=== PATIENT | male | born 1940 | race Caucasian/White ===

== ENCOUNTER 2020-06-02 20:16 | Emergency (ER) | payer MEDICAID, MEDICARE, OTHER ==
[2020-06-02 20:27] VITALS: BP 148/78; PULSE 97
[2020-06-02] MEDS ORDERED: Cephalexin 250 MG Cap PO ONE (22:05)
== END 2020-06-02 22:42 | disposition home or self-care (01) ==
LOC: JP.ED 20:16
DX: E86.0 Dehydration (principal); D69.6 Thrombocytopenia, unspecified; N39.0 Urinary tract infection, site not specified; Z87.891 Personal history of nicotine dependence
CPT/HCPCS: 36415; 80048; 81001; 85025; 87086; 87088; 87186; 99285; A9270; 99283

== ENCOUNTER 2020-06-28 18:26 | Emergency (ER) | payer MEDICARE ==
--- NOTE | 2020-06-28 18:44 | EDM.PDOC ---
ED HPI GENERAL MEDICAL PROBLEM - General Chief Complaint: General Stated Complaint: MEDICAL [facility]IA [facility] Time Seen by Provider: 06/28/20 18:30 Source of Information: Reports: Patient, EMS, Old Records, RN History Limitations: Reports: Other (mild dementia) - History of Present Illness INITIAL COMMENTS - FREE TEXT/NARRATIVE: 80 yo male was sent in from home by his daughter with whom he resides for weakness. Baljinder says this weakness has been coming on for a couple mos. He says he has not seen his doctor lately. He denies any new pain. He has been sleeping OK. Onset: Gradual Duration: Week(s):, Getting Worse Location: Reports: Generalized Quality: Reports: Other (pain not reported) Severity: Severe Improves with: Reports: None Worsens with: Reports: Other (time) Context: Reports: Other (See HPI) Associated Symptoms: Reports: Malaise, Weakness (generalized). 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: Reports: Oxygen (per EMS) - Related Data Allergies Allergy/AdvReac Type Severity Reaction Status Date / Time No Known Allergies Allergy Verified 06/02/20 20:20 Home Meds: Home Meds traZODone 100 mg PO BEDTIME 04/15/16 [History] Acetaminophen [Tylenol] 650 mg PO Q4H PRN #0 tablet 04/25/16 [Rx] Pantoprazole [ProTONIX] 40 mg PO ACBREAKFAST #30 tab.cr 04/25/16 [Rx] traMADol [Ultram] 50 mg PO Q4H PRN #50 tablet 04/25/16 [Rx] Cholecalciferol (Vitamin D3) [Vitamin D] 5,000 unit PO DAILY 06/02/20 [History] Memantine [Namenda] 10 mg PO BID 06/02/20 [History] buPROPion [buPROPion XL] 150 mg PO BEDTIME 06/02/20 [History] Past Medical History Cardiovascular History: Reports: Hypertension Neurological History: Reports: Alzheimers Disease Psychiatric History: Reports: Dementia - Infectious Disease History Infectious Disease History: Reports: Chicken Pox, Measles - Past Surgical History HEENT Surgical History: Reports: Tonsillectomy Social & Family History - Tobacco Use Tobacco Use Status *Q: Never Tobacco User - Caffeine Use Caffeine Use: Reports: Coffee ED ROS GENERAL - Review of Systems Review Of Systems: See Below Constitutional: Reports: Malaise, Weakness (generalized) HEENT: Reports: No Symptoms Respiratory: Reports: No Symptoms Cardiovascular: Reports: No Symptoms GI/Abdominal: Reports: No Symptoms : Reports: No Symptoms Musculoskeletal: Reports: No Symptoms Skin: Reports: No Symptoms Neurological: Reports: No Symptoms Psychiatric: Reports: No Symptoms ED EXAM, GENERAL - Physical Exam Exam: See Below Exam Limited By: No Limitations General Appearance: Alert, WD/WN, No Apparent Distress Eye Exam: Bilateral Eye: Normal Inspection Ears: Normal External Exam, Normal Canal, Hearing Grossly Normal Ear Exam: Bilateral Ear: Auricle Normal, Canal Normal Nose: Normal Inspection, No Blood Throat/Mouth: Normal Inspection, Normal Lips, Normal Oropharynx, Normal Voice, No Airway Compromise. No: Normal Teeth (edentulous) Head: Atraumatic, Normocephalic Neck: Normal Inspection Respiratory/Chest: No Respiratory Distress, Lungs Clear, Normal Breath Sounds, No Accessory Muscle Use, Chest Non-Tender GI/Abdominal: Normal Bowel Sounds, Soft, Non-Tender, No Distention Back Exam: Normal Inspection. No: CVA Tenderness (R), CVA Tenderness (L) Extremities: Normal Inspection, Normal Range of Motion, Non-Tender, No Pedal Edema Neurological: Alert, Oriented, CN II-XII Intact, Normal Cognition, No Motor/Sensory Deficits Psychiatric: Normal Mood, Flat Affect Skin Exam: Warm, Dry, Intact, Normal Color, No Rash Course - Vital Signs Text/Narrative:: Post void bladder scan < 100 ml Last Recorded V/S: Last Vital Signs Temp 34.6 C L 06/28/20 19:09 Pulse 67 06/28/20 19:57 Resp 14 06/28/20 19:57 BP 137/78 06/28/20 19:57 Pulse Ox 95 06/28/20 19:57 - Orders/Labs/Meds Orders: Active Orders 24 hr Category Date Time Status Bladder Scan [RC] ASDIRECTED Care 06/28/20 20:25 Active CULTURE URINE [RM] Stat Lab 06/28/20 21:23 Ordered Labs: Laboratory Tests 06/28/20 06/28/20 06/28/20 Range/Units 18:32 18:32 21:09 WBC 9.3 (4.5-11.0) K/uL RBC 4.84 (4.30-5.90) M/uL Hgb 14.0 (12.0-15.0) g/dL Hct 45.3 (40.0-54.0) % MCV 94 (80-98) fL MCH 29 (27-31) pg MCHC 31 L (32-36) % Plt Count 167 (150-400) K/uL Sodium 140 (140-148) mmol/L Potassium 4.3 (3.6-5.2) mmol/L Chloride 103 (100-108) mmol/L Carbon Dioxide 33 H (21-32) mmol/L Anion Gap 8.3 (5.0-14.0) mmol/L BUN 19 H (7-18) mg/dL Creatinine 1.1 (0.8-1.3) mg/dL Est Cr Clr Drug Dosing 53.15 mL/min Estimated GFR (MDRD) > 60 (>60) Glucose 116 H (74-106) mg/dL Calcium 8.7 (8.5-10.1) mg/dL Troponin I < 0.017 (0.000-0.056) ng/mL Urine Color Yellow (YELLOW) Urine Appearance Cloudy A (CLEAR) Urine pH 5.5 (5.0-8.0) Ur Specific [place] >= 1.030 (1.008-1.030) Urine Protein 30 H (NEGATIVE) mg/dL Urine Glucose (UA) Negative (NEGATIVE) mg/dL Urine Ketones Negative (NEGATIVE) mg/dL Urine Occult Blood Trace-intact H (NEGATIVE) Urine Nitrite Positive H (NEGATIVE) Urine Bilirubin Small H (NEGATIVE) Urine Urobilinogen 1.0 (0.2-1.0) EU/dL Ur Leukocyte Esterase Negative (NEGATIVE) Urine RBC 0-5 (0-5) Urine WBC 10-20 H (0-5) Ur Epithelial Cells Rare Amorphous Sediment Not seen Urine Bacteria Many Urine Mucus Not seen Meds: Medications Discontinued Medications Generic Name Dose Route Start Last Admin Trade Name Freq PRN Reason Stop Dose Admin Cephalexin 500 mg 06/28/20 21:23 Keflex PO 06/28/20 21:24 ONETIME ONE Lactated Ringer's 1,000 mls @ 1,000 mls/hr 06/28/20 19:33 06/28/20 19:55 Ringers, Lactated IV 06/28/20 20:32 1,000 mls/hr BOLUS ONE Administration Departure - Departure Time of Disposition: 21:35 Disposition: Home, Self-Care 01 Condition: Fair Clinical Impression: Cystitis, Weakness - Discharge Information *PRESCRIPTION DRUG MONITORING PROGRAM REVIEWED*: Not Applicable *COPY OF PRESCRIPTION DRUG MONITORING REPORT IN PATIENT FLACO: Not Applicable Instructions: Weakness, [id number] Referrals: PCP,None [Primary Care Provider] - Forms: ED Department Discharge Additional Instructions: Give cephalexin 500 mg every 8 hrs until gone. Recheck with your provider DOMINIC, may need physical therapy and/or assisted living if he does not improve. Encourage fluids. Sepsis Event Note (ED) - Focused Exam Vital Signs: Vital Signs Temp Pulse Resp BP Pulse Ox 06/28/20 19:57 67 14 137/78 95 06/28/20 19:25 71 14 156/66 H 92 L 06/28/20 19:09 34.6 C L 72 28 H 135/79 94 L 06/28/20 18:30 34.6 C L 72 28 H 135/79 94 L - My Orders Last 24 Hours: My Active Orders 06/28/20 20:25 Bladder Scan [RC] ASDIRECTED 06/28/20 21:23 CULTURE URINE [RM] Stat - Assessment/Plan Last 24 Hours: My Active Orders 06/28/20 20:25 Bladder Scan [RC] ASDIRECTED 06/28/20 21:23 CULTURE URINE [RM] Stat
[2020-06-28] MEDS ORDERED: Lactated Ringers 1,000 ML IV ONE (19:33)
[2020-06-28 19:58] VITALS: BP 137/78; PULSE 67
[2020-06-28] MEDS ORDERED: Cephalexin 250 MG Cap PO ONE (21:23)
== END 2020-06-28 22:38 | disposition home or self-care (01) ==
LOC: JP.ED 18:26
DX: N30.90 Cystitis, unspecified without hematuria (principal); I10 Essential (primary) hypertension; G30.9 Alzheimer's disease, unspecified; F02.80 Dementia in other diseases classified elsewhere, unspecified severity, without behavioral disturbance, psychotic disturbance, mood disturbance, and anxiety; Z79.899 Other long term (current) drug therapy
CPT/HCPCS: 36415; 80048; 81001; 84484; 85027; 87086; 87088; 87186; 99285; A9270; J7120

== ENCOUNTER 2020-06-29 23:35 | Inpatient (IN) | payer MEDICARE ==
[2020-06-30] MEDS ORDERED: Sodium Chloride 0.9% 10 ML Syringe FLUSH PRN (00:09)
--- NOTE | 2020-06-30 00:15 | EDM.PDOC ---
ED HPI GENERAL MEDICAL PROBLEM - General Chief Complaint: Cardiovascular Problem Stated Complaint: MEDICAL [facility] Time Seen by Provider: 06/30/20 00:00 Source of Information: Reports: EMS, Old Records History Limitations: Reports: Other (patient not useful for history) - History of Present Illness INITIAL COMMENTS - FREE TEXT/NARRATIVE: 80 yo male is brought in by EMS for hypoxia, low BP and weakness. Was seen here yesterday and had a normal exam, labs and vitals except for a few WBC's in his urine and a high specific gravity on his UA so he was given fluids and started on cephalexin. Since then he has developed the respiratory sx's. Lives in his home and daughter lives with him. Is DNR/DNI. Onset: Gradual Onset Date: 06/29/20 Duration: Hour(s):, Getting Worse Location: Reports: Chest, Generalized Quality: Reports: Other (pain not reported.) Severity: Moderate Improves with: Reports: None Worsens with: Reports: Other (time) Context: Reports: Other (See HPI) Associated Symptoms: Reports: Malaise, Shortness of Breath. Denies: Fever/Chills Treatments LOOP CUTTER: Reports: See EMS Report, Other (see below) (cephalexin) - Related Data Allergies Allergy/AdvReac Type Severity Reaction Status Date / Time No Known Allergies Allergy Verified 06/29/20 23:58 Home Meds: Home Meds traZODone 100 mg PO BEDTIME 04/15/16 [History] Acetaminophen [Tylenol] 650 mg PO Q4H PRN #0 tablet 04/25/16 [Rx] Pantoprazole [ProTONIX] 40 mg PO ACBREAKFAST #30 tab.cr 04/25/16 [Rx] traMADol [Ultram] 50 mg PO Q4H PRN #50 tablet 04/25/16 [Rx] Cholecalciferol (Vitamin D3) [Vitamin D] 5,000 unit PO DAILY 06/02/20 [History] Memantine [Namenda] 10 mg PO BID 06/02/20 [History] buPROPion [buPROPion XL] 150 mg PO BEDTIME 06/02/20 [History] Past Medical History Cardiovascular History: Reports: Hypertension Neurological History: Reports: Alzheimers Disease Psychiatric History: Reports: Dementia - Infectious Disease History Infectious Disease History: Reports: Chicken Pox, Measles - Past Surgical History HEENT Surgical History: Reports: Tonsillectomy Social & Family History - Caffeine Use Caffeine Use: Reports: Coffee ED ROS GENERAL - Review of Systems Review Of Systems: See Below Constitutional: Reports: Malaise, Weakness HEENT: Reports: No Symptoms Respiratory: Reports: Shortness of Breath Cardiovascular: Reports: No Symptoms GI/Abdominal: Reports: No Symptoms : Reports: No Symptoms Musculoskeletal: Reports: No Symptoms Skin: Reports: No Symptoms Neurological: Reports: No Symptoms ED EXAM, GENERAL - Physical Exam Exam: See Below Exam Limited By: No Limitations General Appearance: Alert, WD/WN Eye Exam: Bilateral Eye: Normal Inspection Ears: Normal External Exam, Hearing Grossly Normal Ear Exam: Bilateral Ear: Auricle Normal, Canal Normal, TM normal Nose: Normal Inspection, No Blood Throat/Mouth: Normal Inspection, Normal Lips, Normal Oropharynx, Normal Voice, No Airway Compromise Head: Atraumatic, Normocephalic Neck: Normal Inspection Respiratory/Chest: Rhonchi Cardiovascular: Regular Rate, Rhythm, No Edema GI/Abdominal: Normal Bowel Sounds, Soft, Non-Tender, No Distention Back Exam: Normal Inspection. No: CVA Tenderness (R), CVA Tenderness (L) Extremities: Normal Inspection, Normal Range of Motion, Non-Tender, No Pedal Edema Neurological: Alert, Oriented, CN II-XII Intact, Normal Cognition, No Motor/Sensory Deficits Psychiatric: Normal Affect, Normal Mood Skin Exam: Warm, Dry, Intact, Normal Color, No Rash Course - Vital Signs Text/Narrative:: Dr. Kitchen called @ 1230h Last Recorded V/S: Last Vital Signs Temp 35.9 C L 06/29/20 23:38 Pulse 70 06/29/20 23:38 Resp 28 H 06/29/20 23:38 BP 89/55 L 06/29/20 23:38 Pulse Ox 90 L 06/29/20 23:38 - Orders/Labs/Meds Orders: Active Orders 24 hr Category Date Time Status Chest 1V Frontal [CR] Stat Exams 06/30/20 00:08 Taken Sodium Chloride 0.9% [Saline Flush] Med 06/30/20 00:09 Active 10 ml FLUSH ASDIRECTED PRN Saline Lock Insert [OM.PC] Routine Oth 06/30/20 00:09 Ordered Medication Orders Sodium Chloride (Saline Flush) 10 ml FLUSH ASDIRECTED PRN PRN Reason: Keep Vein Open Labs: Laboratory Tests 06/30/20 06/30/20 Range/Units 00:08 00:12 WBC 7.0 (4.5-11.0) K/uL RBC 4.60 (4.30-5.90) M/uL Hgb 13.7 (12.0-15.0) g/dL Hct 43.8 (40.0-54.0) % MCV 95 (80-98) fL MCH 30 (27-31) pg MCHC 31 L (32-36) % Plt Count 142 L (150-400) K/uL Sodium 140 (140-148) mmol/L Potassium 4.3 (3.6-5.2) mmol/L Chloride 103 (100-108) mmol/L Carbon Dioxide 34 H (21-32) mmol/L Anion Gap 7.3 (5.0-14.0) mmol/L BUN 17 (7-18) mg/dL Creatinine 1.2 (0.8-1.3) mg/dL Est Cr Clr Drug Dosing 48.67 mL/min Estimated GFR (MDRD) 58 L (>60) Glucose 138 H (74-106) mg/dL Calcium 8.2 L (8.5-10.1) mg/dL C-Reactive Protein 3.50 H (0.0-0.3) mg/dL Meds: Medications Generic Name Dose Route Start Last Admin Trade Name Freq PRN Reason Stop Dose Admin Sodium Chloride 10 ml 06/30/20 00:09 Saline Flush FLUSH ASDIRECTED PRN Keep Vein Open - Radiology Interpretation Free Text/Narrative:: CXR-bilateral effusions, infiltrates Departure - Departure Time of Disposition: 01:00 Disposition: Admitted As Inpatient 64 Condition: Fair Clinical Impression: Hypoxia, Pleural effusion Pneumonia Qualifiers: Pneumonia type: due to unspecified organism Laterality: bilateral Lung location: lower lobe of lung Qualified Code(s): J18.9 - Pneumonia, unspecified organism Referrals: PCP,None [Primary Care Provider] - Forms: ED Department Discharge Sepsis Event Note (ED) - Evaluation Sepsis Screening Result: Possible Severe Sepsis Risk - Focused Exam Vital Signs: Vital Signs Temp Pulse Resp BP Pulse Ox 06/29/20 23:38 35.9 C L 70 28 H 89/55 L 90 L - My Orders Last 24 Hours: My Active Orders 06/30/20 00:08 Chest 1V Frontal [CR] Stat 06/30/20 00:09 Sodium Chloride 0.9% [Saline Flush] 10 ml FLUSH ASDIRECTED PRN Saline Lock Insert [OM.PC] Routine - Assessment/Plan Last 24 Hours: My Active Orders 06/30/20 00:08 Chest 1V Frontal [CR] Stat 06/30/20 00:09 Sodium Chloride 0.9% [Saline Flush] 10 ml FLUSH ASDIRECTED PRN Saline Lock Insert [OM.PC] Routine
[2020-06-30] MEDS ORDERED: Lactated Ringers 1,000 ML IV SCH (01:00)
[2020-06-30] MEDS ORDERED: Levofloxacin/Dextrose 5%-Water 750 MG in Premix Bag 1 BAG IV ONE (01:26)
--- NOTE | 2020-06-30 02:14 | PCM.HP.2 ---
H&P History of Present Illness - General Date of Service: 06/30/20 Admit Problem/Dx: Admission Diagnosis/Problem Admission Diagnosis/Problem Pneumonia Source of Information: Patient, Family History Limitations: Reports: Other (answers a few questions, daughter does most of the talking ) - History of Present Illness Initial Comments - Free Text/Narative: CC: I thought I was losing him HPI: Baljinder presents to the emergency room tonight by ambulance after an episode of unresponsiveness while he was on the toilet. Most history is gathered from his daughter but he does provide some information. Most of his responses are either a head nod or head shake. She reports that he has had increasing difficulty over the past month. He has been treated for urinary tract infection a couple of different times. He has had a slow decline in his strength with a more rapid decline over the last several days. He was in the emergency room last night and work-up was suggestive of a possible urinary tract infection and he was on cephalexin. Since that time he has become even more weak. He has not been eating or drinking very well. This evening while he was sitting on the t oilet having a bowel movement his eyes rolled back and he stared blankly. His arms were shaky. This lasted about 30 seconds before he came back to normal. He does say he has been coughing some and his daughter reports that he has been coughing up some phlegm. He does not report any chest pain or abdominal pain. No nausea. No change in bowel or bladder habits. Energy has decreased from baseline. He has been losing weight because he has not been eating. He has had multiple falls with minor bumps and bruises. No sick contacts. No travel. Work-up in the emergency room suggested a right lung pneumonia. He is hypoxic and requiring 3.5 L of supplemental oxygen. His blood pressure is low and he is receiving a fluid bolus. He is going to be admitted to the intensive care unit for management of pneumonia with sepsis and respiratory failure. - Related Data Allergies/Adverse Reactions: Allergies Allergy/AdvReac Type Severity Reaction Status Date / Time No Known Allergies Allergy Verified 06/29/20 23:58 Home Medications: Home Meds traZODone 100 mg PO BEDTIME 04/15/16 [History] Acetaminophen [Tylenol] 650 mg PO Q4H PRN #0 tablet 04/25/16 [Rx] Pantoprazole [ProTONIX] 40 mg PO ACBREAKFAST #30 tab.cr 04/25/16 [Rx] traMADol [Ultram] 50 mg PO Q4H PRN #50 tablet 04/25/16 [Rx] Cholecalciferol (Vitamin D3) [Vitamin D] 5,000 unit PO DAILY 06/02/20 [History] Memantine [Namenda] 10 mg PO BID 06/02/20 [History] buPROPion [buPROPion XL] 150 mg PO BEDTIME 06/02/20 [History] Past Medical History Cardiovascular History: Reports: Hypertension Neurological History: Reports: Alzheimers Disease Psychiatric History: Reports: Dementia - Infectious Disease History Infectious Disease History: Reports: Chicken Pox, Measles - Past Surgical History HEENT Surgical History: Reports: Tonsillectomy Social & Family History - Family History Cardiac: Denies: CAD - Tobacco Use Tobacco Use Status *Q: Never Tobacco User - Caffeine Use Caffeine Use: Reports: Coffee - Alcohol Use Alcohol Use History: No - Recreational Drug Use Recreational Drug Use: No H&P Review of Systems - Review of Systems: Review Of Systems: See Below Free Text/Narrative: A complete 12 point review of systems was obtained. Pertinent positives and negatives are noted in the history of present illness. All other systems were reviewed and were negative except as noted. Exam - Exam Exam: See Below - Vital Signs Vital Signs: Last Vital Signs Temp 35.9 C L 06/29/20 23:38 Pulse 67 06/30/20 01:54 Resp 28 H 06/29/20 23:38 BP 83/51 L 06/30/20 01:54 Pulse Ox 90 L 06/29/20 23:38 Weight: 72.5 kg - Exam Quality Assessment: Supplemental Oxygen General: Alert, Cooperative. No: Mild Distress HEENT: Conjunctiva Clear. No: Mucosa Moist & Wesley (dry), Scleral Icterus Neck: Supple, Trachea Midline Lungs: Decreased Breath Sounds (right lung base), Crackles (left lower and right mid/lower lungs). No: Normal Respiratory Effort (increased work of breathing ), Wheezing Cardiovascular: Regular Rate, Regular Rhythm GI/Abdominal Exam: Normal Bowel Sounds, Soft, Non-Tender, No Distention Extremities: No Pedal Edema. No: Increased Warmth Peripheral Pulses: 1+: Dorsalis Pedis (L), Dorsalis Pedis (R) Skin: Warm, Dry, Ecchymosis (left shoulder, both arms), Wound (small abrasion on his forehead and left knee as well as healing abrasion/scab on posterior scalp) Neuro Extensive - Mental Status: Alert, Nl Response to Commands Neuro Extensive - Motor, Sensory, Reflexes: No: Dysarthria, Abnormal Motor Psychiatric: Alert, Normal Affect - Patient Data Lab Results Last 24 hrs: Laboratory Results - last 24 hr 06/30/20 06/30/20 06/30/20 Range/Units 00:08 00:12 00:42 WBC 7.0 (4.5-11.0) K/uL RBC 4.60 (4.30-5.90) M/uL Hgb 13.7 (12.0-15.0) g/dL Hct 43.8 (40.0-54.0) % MCV 95 (80-98) fL MCH 30 (27-31) pg MCHC 31 L (32-36) % Plt Count 142 L (150-400) K/uL Sodium 140 (140-148) mmol/L Potassium 4.3 (3.6-5.2) mmol/L Chloride 103 (100-108) mmol/L Carbon Dioxide 34 H (21-32) mmol/L Anion Gap 7.3 (5.0-14.0) mmol/L BUN 17 (7-18) mg/dL Creatinine 1.2 (0.8-1.3) mg/dL Est Cr Clr Drug Dosing 48.67 mL/min Estimated GFR (MDRD) 58 L (>60) Glucose 138 H (74-106) mg/dL Lactic Acid (0.4-2.0) mmol/L Calcium 8.2 L (8.5-10.1) mg/dL C-Reactive Protein 3.50 H (0.0-0.3) mg/dL SARS CoV-2 RNA Rapid ISELA Negative 06/30/20 Range/Units 00:52 WBC (4.5-11.0) K/uL RBC (4.30-5.90) M/uL Hgb (12.0-15.0) g/dL Hct (40.0-54.0) % MCV (80-98) fL MCH (27-31) pg MCHC (32-36) % Plt Count (150-400) K/uL Sodium (140-148) mmol/L Potassium (3.6-5.2) mmol/L Chloride (100-108) mmol/L Carbon Dioxide (21-32) mmol/L Anion Gap (5.0-14.0) mmol/L BUN (7-18) mg/dL Creatinine (0.8-1.3) mg/dL Est Cr Clr Drug Dosing mL/min Estimated GFR (MDRD) (>60) Glucose (74-106) mg/dL Lactic Acid 3.3 H (0.4-2.0) mmol/L Calcium (8.5-10.1) mg/dL C-Reactive Protein (0.0-0.3) mg/dL SARS CoV-2 RNA Rapid ISELA Result Diagrams: 06/30/20 00:08 06/30/20 00:12 Imaging Impressions Last 24 hrs: CXR-image personally reviewed-bilateral effusions L>R. There is a large right sided infiltrate. heart size is normal. No obvious mass. Sepsis Event Note - Evaluation Sepsis Screening Result: Possible Severe Sepsis Risk - Focused Exam Vital Signs: Vital Signs Temp Pulse Resp BP Pulse Ox 06/30/20 01:54 67 83/51 L 06/30/20 01:30 68 86/50 L 06/30/20 00:45 70 85/48 L 06/30/20 00:07 67 91/53 L 06/29/20 23:48 67 92/55 L 06/29/20 23:38 35.9 C L 70 28 H 89/55 L 90 L *Q Meaningful Use (ADM) - VTE Risk Assess *Q Each Risk Factor Represents 1 Point: Sepsis, Serious lung disease including pneumonia Total Score 1 Point Risk Factors: 2 Each Risk Factor Represents 2 Points: None Total Score 2 Point Risk Factors: 0 Each Risk Factor Represents 3 Points: Age 75 Years or Greater Total Score 3 Point Risk Factors: 3 Each Risk Factor Represents 5 Points: None Total Score 5 Point Risk Factors: 0 Venous Thromboembolism Risk Factor Score *Q: 5 - Problem List (1) Pneumonia SNOMED Code(s): 380881831 ICD Code: J18.9 - PNEUMONIA, UNSPECIFIED ORGANISM Status: Acute Current Visit: Yes Qualifiers: Pneumonia type: due to unspecified organism Laterality: bilateral Lung location: lower lobe of lung Qualified Code(s): J18.9 - Pneumonia, unspecified organism (2) Sepsis SNOMED Code(s): 51295097 ICD Code: A41.9 - SEPSIS, UNSPECIFIED ORGANISM Status: Acute Current Visit: Yes Qualifiers: Sepsis acute organ dysfunction status: with acute organ dysfunction Severe sepsis acute organ dysfunction type: acute respiratory failure Acute respiratory failure type: with hypoxia Severe sepsis shock status: without septic shock (3) Acute respiratory failure with hypoxia SNOMED Code(s): 15623943, 972117808 ICD Code: J96.01 - ACUTE RESPIRATORY FAILURE WITH HYPOXIA Status: Acute Current Visit: Yes (4) Pleural effusion SNOMED Code(s): 05082997 ICD Code: J90 - PLEURAL EFFUSION, NOT ELSEWHERE CLASSIFIED Status: Acute Current Visit: Yes (5) UTI (urinary tract infection) SNOMED Code(s): 19720889 ICD Code: N39.0 - URINARY TRACT INFECTION, SITE NOT SPECIFIED Status: Acute Current Visit: No Qualifiers: Urinary tract infection type: acute cystitis Hematuria presence: without hematuria Qualified Code(s): N30.00 - Acute cystitis without hematuria (6) Weakness SNOMED Code(s): 70340045 ICD Code: R53.1 - WEAKNESS Status: Acute Current Visit: No Problem List Initiated/Reviewed/Updated: Yes Orders Last 24hrs: Active Orders 24 hr Category Date Time Status Patient Status Manage Transfer [TRANSFER] Routine ADT 06/30/20 01:59 Ordered Chest 1V Frontal [CR] Stat Exams 06/30/20 00:08 Taken Chest wo Cont [CT] Stat Exams 06/30/20 01:55 Ordered CULTURE BLOOD [BC] Stat Lab 06/30/20 01:27 Received Lactated Ringers [Ringers, Lactated] 1,000 ml Med 06/30/20 01:00 Active IV BOLUS Levofloxacin/Dextrose 5%-Water [Levaquin in D5W 750 MG/ Med 06/30/20 01:26 Active 150 ML] 750 mg Premix Bag 1 bag IV ONETIME Sodium Chloride 0.9% [Saline Flush] Med 06/30/20 00:09 Active 10 ml FLUSH ASDIRECTED PRN Saline Lock Insert [OM.PC] Routine Oth 06/30/20 00:09 Ordered Resuscitation Status Routine Resus Stat 06/30/20 02:01 Ordered Medication Orders Lactated Ringer's (Ringers, Lactated) 1,000 mls @ 1,000 mls/hr IV BOLUS [facility] Last Admin: 06/30/20 00:56 Dose: 1,000 mls/hr Documented by: ADITYA Levofloxacin/Dextrose 750 mg/ (Premix) 150 mls @ 100 mls/hr IV ONETIME ONE Stop: 06/30/20 02:55 Last Admin: 06/30/20 01:32 Dose: 100 mls/hr Documented by: ADITYA Sodium Chloride (Saline Flush) 10 ml FLUSH ASDIRECTED PRN PRN Reason: Keep Vein Open Last Admin: 06/30/20 00:55 Dose: 10 ml Documented by: ADITYA Assessment/Plan Comment:: ASSESSMENT AND PLAN - Right lung pneumonia-complicated by sepsis and acute respiratory failure with hypoxia. Currently requiring 3.5 L of oxygen. He does have a productive cough. Fairly large looking infiltrate on the right as well as bilateral effusions that would be better characterized with CT scan. He is currently hypotensive and receiving IV fluid boluses. Lactic acid is 3.3. -Antibiotic coverage with levofloxacin and ceftriaxone -Additional fluid bolus until blood pressure improved -Consider norepinephrine if he remains hypotensive -Sputum culture if able -Supplement oxygen -CT of the chest to further characterize infiltrate and effusions Bilateral pleural effusions-slightly larger on the left than on the right. No history of congestive heart failure. -Consider echocardiogram Recurrent urinary tract infections-several rounds of antibiotics over the past month. Urine last night suggestive of infection and he did have E. coli growing in the culture today. This should have been sensitive to the cephalexin. -Antibiotics as above Maintenance issues - - DVT prophylaxis -enoxaparin - GI prophylaxis -PPI - Nutrition -mechanical soft - Thorpe catheter -not currently indicated but could be considered if status becomes more critical CODE STATUS -DNR/DNI Admission justification -this patient will be admitted for inpatient services and is medically appropriate meeting medical necessity for inpatient admission as outlined in my documentation. I reasonably expect the patient will require inpatient services that span a period time over 2 midnights. I reasonably expect this patient to be discharged or transferred within 96 hours [facility]. Disposition -I would anticipate discharge to a longterm facility if he survives the hospital stay Primary care physician -Dr Maryjo Kitchen M.D. - Mortality Measure Prognosis:: Poor
[2020-06-30] MEDS ORDERED: traMADol 50 MG Tab PO PRN (03:22)
[2020-06-30] MEDS ORDERED: LORazepam 2 MG/ML SDV IVPUSH PRN (03:22)
[2020-06-30] MEDS ORDERED: Ondansetron 4 MG/2 ML SDV IV PRN (03:22)
[2020-06-30] MEDS ORDERED: Acetaminophen 325 MG Tab PO PRN (03:22)
[2020-06-30] MEDS ORDERED: Sodium Chloride 0.9% 1,000 ML IV SCH (03:22)
[2020-06-30] MEDS ORDERED: Ondansetron 4 MG Tab.DIS PO PRN (03:22)
[2020-06-30] MEDS ORDERED: Lactated Ringers 500 ML IV SCH (03:22)
[2020-06-30] MEDS ORDERED: Sodium Chloride 0.9% 1,000 ML IV ONE (03:22)
[2020-06-30] MEDS ORDERED: Albuterol 0.083% 2.5 MG/3 ML Neb Soln NEB PRN (03:22)
[2020-06-30] MEDS ORDERED: Magnesium Hydroxide 400 MG/5 ML Susp 30 ML Cup PO PRN (03:22)
--- NOTE | 2020-06-30 04:03 | CRLCT ---
INDICATION: Pneumonia, effusions COMPARISON: CT chest without contrast 02/19/2016 TECHNIQUE: Nonenhanced axial CT imaging through the chest. Sagittal and coronal reconstructions are provided. FINDINGS: There are several small cavitating nodular densities scattered throughout the right lung. Consolidative changes are seen in the lung bases bilaterally. There is very small right pleural effusion. Small to moderate sized pleural effusion is also present on the left. Mild subpleural emphysema is noted in the lung apices. No lymphadenopathy is appreciated in the mediastinum and pulmonary josh. There is no cardiomegaly. Coronary artery calcification is present. There is no pericardial effusion. The main pulmonary artery and thoracic aorta are normal in caliber. Degenerative changes are noted in the thoracic spine. There is pneumobilia involving the left hepatic lobe. The included upper abdomen is otherwise unremarkable. IMPRESSION: 1. Bibasilar airspace consolidation, concerning for pneumonia. Bilateral pleural effusions, larger on the left. 2. Scattered small cavitating pulmonary nodular densities in the right lung. Primary differential considerations are infection and vasculitis. Neoplasm is considered less likely. Please note that all CT scans at this facility use dose modulation, iterative reconstruction, and/or weight-based dosing when appropriate to reduce radiation dose to as low as reasonably achievable. Dictated by Kathy Jaiml MD @ Jun 30 2020 3:51AM Signed by Dr. Kathy Jamil @ Jun 30 2020 4:02AM
[2020-06-30] MEDS: cefTRIAXone 1 GM in Sodium Chloride 0.9% 50 ML IV SCH ×2 (04:34→20:33)
[2020-06-30] MEDS ORDERED: Albuterol/Ipratropium 3.0-0.5 MG/3 ML Neb Soln NEB SCH (06:00)
[2020-06-30] MEDS: Pantoprazole 40 MG Tab.CR PO SCH (08:46)
[2020-06-30] MEDS: Lactobacillus Rhamnosus GG (Probiotic) Cap PO SCH ×2 (08:46→20:26)
[2020-06-30] MEDS: Enoxaparin 40 MG/0.4 ML Syringe SUBCUT SCH (08:47)
[2020-06-30] MEDS: Memantine 10 MG Tab PO SCH ×2 (08:47→20:26)
[2020-06-30] MEDS: Albuterol/Ipratropium 3.0-0.5 MG/3 ML Neb Soln NEB SCH ×3 (10:11→20:32)
[2020-06-30] MEDS: Sodium Chloride 0.9% 1,000 ML IV SCH (11:43)
[2020-06-30] MEDS: buPROPion 150 MG Tab.ER PO SCH (20:26)
[2020-06-30] MEDS: Melatonin 3 MG Tab PO SCH (20:26)
[2020-06-30] MEDS: traZODone 50 MG Tab PO SCH (20:26)
[2020-07-01] MEDS: Sodium Chloride 0.9% 1,000 ML IV SCH (00:50)
[2020-07-01] MEDS: Albuterol/Ipratropium 3.0-0.5 MG/3 ML Neb Soln NEB SCH ×4 (07:16→21:18)
[2020-07-01] MEDS: Pantoprazole 40 MG Tab.CR PO SCH (08:55)
[2020-07-01] MEDS: Memantine 10 MG Tab PO SCH ×2 (09:10→20:56)
[2020-07-01] MEDS: Lactobacillus Rhamnosus GG (Probiotic) Cap PO SCH ×2 (09:10→20:56)
[2020-07-01] MEDS: Enoxaparin 40 MG/0.4 ML Syringe SUBCUT SCH (09:14)
[2020-07-01] MEDS: Levofloxacin/Dextrose 5%-Water 750 MG in Premix Bag 1 BAG IV SCH (10:57)
--- NOTE | 2020-07-01 12:44 | PCM.PN ---
- General Info Date of Service: 07/01/20 Subjective Update: Mr. Davis has improved from admission with less shortness of breath. Appetite this morning is good, he was able to eat most of his very large breakfast. Energy level overall seems to be improving. Functional Status: Reports: Tolerating Diet, Ambulating, Urinating - Review of Systems General: Reports: Weakness, Fatigue. Denies: Fever, Chills Pulmonary: Reports: Shortness of Breath, Cough. Denies: Sputum, Hemoptysis, Wheezing Cardiovascular: Reports: Dyspnea on Exertion. Denies: Chest Pain, Palpitations, Orthopnea, PND, Edema, Lightheadedness Gastrointestinal: Reports: No Symptoms Genitourinary: Reports: No Symptoms - Patient Data Vitals - Most Recent: Last Vital Signs Temp 97.3 F 07/01/20 12:00 Pulse 62 07/01/20 12:00 Resp 14 07/01/20 12:00 BP 117/55 L 07/01/20 12:00 Pulse Ox 99 07/01/20 12:00 Weight - Most Recent: 154 lb 12.8 oz I&O - Last 24 Hours: Intake & Output 06/30/20 07/01/20 07/01/20 22:59 06:59 14:59 Intake Total 1625 150 Output Total 150 125 Balance 1475 25 Lab Results Last 24 Hours: Laboratory Results - last 24 hr 07/01/20 07/01/20 Range/Units 06:00 06:00 WBC 4.6 (4.5-11.0) K/uL RBC 3.74 L (4.30-5.90) M/uL Hgb 10.7 L D (12.0-15.0) g/dL Hct 35.5 L (40.0-54.0) % MCV 95 (80-98) fL MCH 29 (27-31) pg MCHC 30 L (32-36) % Plt Count 120 L (150-400) K/uL Neut % (Auto) 81 H (36-66) % Lymph % (Auto) 10 L (24-44) % Todd % (Auto) 8 H (2-6) % Eos % (Auto) 1 L (2-4) % Baso % (Auto) 0 (0-1) % Sodium 141 (140-148) mmol/L Potassium 3.6 (3.6-5.2) mmol/L Chloride 105 (100-108) mmol/L Carbon Dioxide 31 (21-32) mmol/L Anion Gap 4.8 L (5.0-14.0) mmol/L BUN 10 (7-18) mg/dL Creatinine 0.9 (0.8-1.3) mg/dL Est Cr Clr Drug Dosing 56.55 mL/min Estimated GFR (MDRD) > 60 (>60) Glucose 125 H (74-106) mg/dL Calcium 7.7 L (8.5-10.1) mg/dL Magnesium 1.8 (1.8-2.4) mg/dL Total Bilirubin 0.2 (0.2-1.0) mg/dL AST 15 (15-37) U/L ALT 25 (12-78) U/L Alkaline Phosphatase 83 (46-116) U/L Total Protein 5.1 L (6.4-8.2) g/dL Albumin 1.7 L (3.4-5.0) g/dL Globulin 3.4 (2.3-3.5) g/dL Albumin/Globulin Ratio 0.5 L (1.2-2.2) German Results Last 24 Hours: Microbiology 06/30/20 01:27 Aerobic Blood Culture - Preliminary Blood - Venous NO GROWTH AFTER 1 DAY Anaerobic Blood Culture - Preliminary NO GROWTH AFTER 1 DAY 06/30/20 19:11 Gram Stain - Final Sputum - Expectorated 06/30/20 07:51 Gram Stain - Final Sputum - Expectorated Respiratory Culture - Final Med Orders - Current: Current Medications Acetaminophen (Tylenol) 650 mg PO Q4H PRN PRN Reason: Pain (Mild 1-3)/fever Albuterol (Proventil Neb Soln) 2.5 mg NEB Q4H PRN PRN Reason: Shortness Of Breath/wheezing Albuterol/Ipratropium (Duoneb 3.0-0.5 Mg/3 Ml) 3 ml NEB QIDRT [facility] Last Admin: 07/01/20 11:03 Dose: 3 ml Documented by: Bupropion HCl (Wellbutrin Xl) 150 mg PO BEDTIME [facility] Last Admin: 06/30/20 20:26 Dose: 150 mg Documented by: Enoxaparin Sodium (Lovenox) 40 mg SUBCUT DAILY [facility] Last Admin: 07/01/20 09:14 Dose: 40 mg Documented by: Lactated Ringer's (Ringers, Lactated) 500 mls @ 999 mls/hr IV .BOLUS [facility] Ceftriaxone Sodium 1 gm/ (Sodium Chloride) 50 mls @ 100 mls/hr IV BEDTIME [facility] Last Admin: 06/30/20 20:33 Dose: 100 mls/hr Documented by: Levofloxacin/Dextrose 750 mg/ (Premix) 150 mls @ 100 mls/hr IV Q24H [facility] Last Admin: 07/01/20 10:57 Dose: 100 mls/hr Documented by: Lactobacillus Rhamnosus (Culturelle) 1 cap PO BID [facility] Last Admin: 07/01/20 09:10 Dose: 1 cap Documented by: Lorazepam (Ativan) 0.5 mg IVPUSH Q4H PRN PRN Reason: Nausea/Vomiting Magnesium Hydroxide (Milk Of Magnesia) 30 ml PO Q12H PRN PRN Reason: Constipation Melatonin (Melatonin) 9 mg PO BEDTIME [facility] Last Admin: 06/30/20 20:26 Dose: 9 mg Documented by: Memantine (Namenda) 10 mg PO BID [facility] Last Admin: 07/01/20 09:10 Dose: 10 mg Documented by: Ondansetron HCl (Zofran) 4 mg IV Q6H PRN PRN Reason: Nausea/Vomiting Ondansetron HCl (Zofran Odt) 4 mg PO Q6H PRN PRN Reason: Nausea able to take PO Pantoprazole Sodium (Protonix) 40 mg PO ACBREAKFAST [facility] Last Admin: 07/01/20 08:55 Dose: 40 mg Documented by: Senna/Docusate Sodium (Senna Plus) 1 tab PO BID PRN PRN Reason: Constipation Sodium Chloride (Saline Flush) 10 ml FLUSH ASDIRECTED PRN PRN Reason: Keep Vein Open Last Admin: 06/30/20 00:55 Dose: 10 ml Documented by: Tramadol HCl (Ultram) 50 mg PO Q4H PRN PRN Reason: Pain Trazodone HCl (Trazodone) 100 mg PO BEDTIME [facility] Last Admin: 06/30/20 20:26 Dose: 100 mg Documented by: Discontinued Medications Albuterol/Ipratropium (Duoneb 3.0-0.5 Mg/3 Ml) 3 ml NEB QID [facility] Last Admin: 06/30/20 06:58 Dose: 3 ml Documented by: Lactated Ringer's (Ringers, Lactated) 1,000 mls @ 1,000 mls/hr IV BOLUS [facility] Last Admin: 06/30/20 00:56 Dose: 1,000 mls/hr Documented by: Levofloxacin/Dextrose 750 mg/ (Premix) 150 mls @ 100 mls/hr IV ONETIME ONE Stop: 06/30/20 02:55 Last Admin: 06/30/20 01:32 Dose: 100 mls/hr Documented by: Sodium Chloride (Normal Saline) 1,000 mls @ 999 mls/hr IV .BOLUS ONE Stop: 06/30/20 04:22 Last Admin: 06/30/20 03:34 Dose: 999 mls/hr Documented by: Sodium Chloride (Normal Saline) 1,000 mls @ 125 mls/hr IV ASDIRECTED [facility] Last Admin: 06/30/20 04:37 Dose: 125 mls/hr Documented by: Sodium Chloride (Normal Saline) 1,000 mls @ 75 mls/hr IV ASDIRECTED [facility] Last Admin: 07/01/20 00:50 Dose: 75 mls/hr Documented by: - Exam Quality Assessment: Supplemental Oxygen, DVT Prophylaxis General: Alert, Cooperative, Mild Distress. No: Oriented Lungs: Decreased Breath Sounds, Rhonchi. No: Crackles, Rales, Wheezing Cardiovascular: Regular Rate, Regular Rhythm, No Murmurs GI/Abdominal Exam: Soft, Non-Tender, No Organomegaly, No Distention Extremities: Non-Tender, No Pedal Edema Sepsis Event Note - Evaluation Sepsis Screening Result: No Definite Risk - Focused Exam Vital Signs: Vital Signs Temp Pulse Resp BP Pulse Ox 07/01/20 12:00 97.3 F 62 14 117/55 L 99 07/01/20 10:00 64 20 118/51 L 94 L 07/01/20 09:00 64 19 119/51 L 96 07/01/20 08:00 68 19 123/50 L 96 07/01/20 06:00 63 25 H 124/66 95 07/01/20 05:00 74 22 H 120/64 96 07/01/20 04:00 62 13 124/56 L 96 07/01/20 03:22 96 07/01/20 03:00 66 14 129/53 L 97 07/01/20 02:00 70 19 129/58 L 95 07/01/20 01:00 97.1 F 68 12 129/58 L 97 - Problem List Review Problem List Initiated/Reviewed/Updated: Yes - My Orders Last 24 Hours: My Active Orders 06/30/20 19:11 CULTURE RESPIRATORY + SMEAR [RM] Routine 07/01/20 12:39 Convert IV to Saline Lock [OM.PC] Routine 07/02/20 05:00 BASIC METABOLIC PANEL,BMP [CHEM] Timed CBC WITH AUTO DIFF [HEME] Timed - Plan Plan:: ASSESSMENT AND PLAN - Right lung pneumonia-complicated by sepsis and acute respiratory failure with hypoxia. Stable and improved from admission. Requiring less supplemental oxygen and has been hemodynamically stable. -Antibiotic coverage with levofloxacin and ceftriaxone -Saline lock IV -Sputum and blood cultures pending -Supplement oxygen Bilateral pleural effusions-slightly larger on the left than on the right. No history of congestive heart failure. -Consider echocardiogram Recurrent urinary tract infections-several rounds of antibiotics over the past month. Urine last night suggestive of infection and he did have E. coli growing in the culture today. This should have been sensitive to the cephalexin. -Antibiotics as above Maintenance issues - - DVT prophylaxis -enoxaparin - GI prophylaxis -PPI - Nutrition -mechanical soft - Thorpe catheter -not currently indicated but could be considered if status becomes more critical CODE STATUS -DNR/DNI Admission justification -this patient will be admitted for inpatient services and is medically appropriate meeting medical necessity for inpatient admission as outlined in my documentation. I reasonably expect the patient will require inpatient services that span a period time over 2 midnights. I reasonably expect this patient to be discharged or transferred within 96 hours after admission to the [facility]. Disposition -I would anticipate discharge to a correction facility if he survives the hospital stay Primary care physician -Dr Maryjo Genao
[2020-07-01] MEDS: Melatonin 3 MG Tab PO SCH (20:56)
[2020-07-01] MEDS: buPROPion 150 MG Tab.ER PO SCH (20:57)
[2020-07-01] MEDS: traZODone 50 MG Tab PO SCH (20:57)
[2020-07-01] MEDS: cefTRIAXone 1 GM in Sodium Chloride 0.9% 50 ML IV SCH (21:18)
[2020-07-02] MEDS: Albuterol/Ipratropium 3.0-0.5 MG/3 ML Neb Soln NEB SCH ×4 (07:07→20:53)
[2020-07-02] MEDS ORDERED: Potassium Chloride 20 MEQ Tab.ER PO ONE (08:20)
[2020-07-02] MEDS: Pantoprazole 40 MG Tab.CR PO SCH (08:28)
[2020-07-02] MEDS: Enoxaparin 40 MG/0.4 ML Syringe SUBCUT SCH (08:53)
[2020-07-02] MEDS: Lactobacillus Rhamnosus GG (Probiotic) Cap PO SCH ×2 (09:25→20:53)
[2020-07-02] MEDS: Memantine 10 MG Tab PO SCH ×2 (09:25→20:53)
[2020-07-02] MEDS ORDERED: Potassium Chloride 10% 20 MEQ/15 ML Soln 15 ML UD Cup PO ONE (09:30)
--- NOTE | 2020-07-02 11:11 | PCM.PN ---
- General Info Date of Service: 07/02/20 Subjective Update: Mr. Davis has been stable since yesterday. Adequate oxygenation on minimal supplemental oxygen. Vital signs have been within desired range and he has remained afebrile. He does remain very weak and will likely require fci placement for restorative physical therapy and Occupational Therapy. Functional Status: Reports: Tolerating Diet, Urinating - Review of Systems General: Reports: Weakness, Fatigue. Denies: Fever, Chills Pulmonary: Reports: Shortness of Breath. Denies: Pleuritic Chest Pain, Cough, Sputum, Hemoptysis, Wheezing Cardiovascular: Reports: Dyspnea on Exertion. Denies: Chest Pain, Palpitations, Orthopnea, PND, Edema, Lightheadedness Gastrointestinal: Reports: No Symptoms - Patient Data Vitals - Most Recent: Last Vital Signs Temp 97.3 F 07/02/20 08:09 Pulse 72 07/02/20 10:00 Resp 18 07/02/20 10:00 BP 120/64 07/02/20 10:00 Pulse Ox 94 L 07/02/20 10:00 Weight - Most Recent: 159 lb I&O - Last 24 Hours: Intake & Output 07/01/20 07/02/20 07/02/20 22:59 06:59 14:59 Intake Total 160 Output Total 175 175 Balance -15 -175 Lab Results Last 24 Hours: Laboratory Results - last 24 hr 07/02/20 07/02/20 Range/Units 04:00 04:00 WBC 6.0 (4.5-11.0) K/uL RBC 3.68 L (4.30-5.90) M/uL Hgb 10.7 L (12.0-15.0) g/dL Hct 34.8 L (40.0-54.0) % MCV 95 (80-98) fL MCH 29 (27-31) pg MCHC 31 L (32-36) % Plt Count 119 L (150-400) K/uL Neut % (Auto) 84 H (36-66) % Lymph % (Auto) 8 L (24-44) % Schleicher % (Auto) 8 H (2-6) % Eos % (Auto) 1 L (2-4) % Baso % (Auto) 0 (0-1) % Sodium 140 (140-148) mmol/L Potassium 3.5 L (3.6-5.2) mmol/L Chloride 105 (100-108) mmol/L Carbon Dioxide 31 (21-32) mmol/L Anion Gap 7.5 (5.0-14.0) mmol/L BUN 10 (7-18) mg/dL Creatinine 0.7 L (0.8-1.3) mg/dL Est Cr Clr Drug Dosing 80.80 mL/min Estimated GFR (MDRD) > 60 (>60) Glucose 114 H (74-106) mg/dL Calcium 7.4 L (8.5-10.1) mg/dL German Results Last 24 Hours: Microbiology 06/30/20 19:11 Gram Stain - Final Sputum - Expectorated Respiratory Culture - Preliminary Yeast Isolated 06/30/20 01:27 Aerobic Blood Culture - Preliminary Blood - Venous NO GROWTH AFTER 2 DAYS Anaerobic Blood Culture - Preliminary NO GROWTH AFTER 2 DAYS Med Orders - Current: Current Medications Acetaminophen (Tylenol) 650 mg PO Q4H PRN PRN Reason: Pain (Mild 1-3)/fever Albuterol (Proventil Neb Soln) 2.5 mg NEB Q4H PRN PRN Reason: Shortness Of Breath/wheezing Albuterol/Ipratropium (Duoneb 3.0-0.5 Mg/3 Ml) 3 ml NEB QIDRT [facility] Last Admin: 07/02/20 10:55 Dose: 3 ml Documented by: Bupropion HCl (Wellbutrin Xl) 150 mg PO BEDTIME [facility] Last Admin: 07/01/20 20:57 Dose: 150 mg Documented by: Enoxaparin Sodium (Lovenox) 40 mg SUBCUT DAILY [facility] Last Admin: 07/02/20 08:53 Dose: 40 mg Documented by: Lactobacillus Rhamnosus (Culturelle) 1 cap PO BID [facility] Last Admin: 07/02/20 09:25 Dose: 1 cap Documented by: Levofloxacin (Levaquin) 750 mg PO Q24H [facility] Lorazepam (Ativan) 0.5 mg IVPUSH Q4H PRN PRN Reason: Nausea/Vomiting Magnesium Hydroxide (Milk Of Magnesia) 30 ml PO Q12H PRN PRN Reason: Constipation Melatonin (Melatonin) 9 mg PO BEDTIME [facility] Last Admin: 07/01/20 20:56 Dose: 9 mg Documented by: Memantine (Namenda) 10 mg PO BID [facility] Last Admin: 07/02/20 09:25 Dose: 10 mg Documented by: Ondansetron HCl (Zofran) 4 mg IV Q6H PRN PRN Reason: Nausea/Vomiting Ondansetron HCl (Zofran Odt) 4 mg PO Q6H PRN PRN Reason: Nausea able to take PO Pantoprazole Sodium (Protonix) 40 mg PO ACBREAKFAST [facility] Last Admin: 07/02/20 08:28 Dose: 40 mg Documented by: Senna/Docusate Sodium (Senna Plus) 1 tab PO BID PRN PRN Reason: Constipation Sodium Chloride (Saline Flush) 10 ml FLUSH ASDIRECTED PRN PRN Reason: Keep Vein Open Last Admin: 06/30/20 00:55 Dose: 10 ml Documented by: Tramadol HCl (Ultram) 50 mg PO Q4H PRN PRN Reason: Pain Trazodone HCl (Trazodone) 100 mg PO BEDTIME [facility] Last Admin: 07/01/20 20:57 Dose: 100 mg Documented by: Discontinued Medications Albuterol/Ipratropium (Duoneb 3.0-0.5 Mg/3 Ml) 3 ml NEB QID [facility] Last Admin: 06/30/20 06:58 Dose: 3 ml Documented by: Lactated Ringer's (Ringers, Lactated) 1,000 mls @ 1,000 mls/hr IV BOLUS [facility] Last Admin: 06/30/20 00:56 Dose: 1,000 mls/hr Documented by: Levofloxacin/Dextrose 750 mg/ (Premix) 150 mls @ 100 mls/hr IV ONETIME ONE Stop: 06/30/20 02:55 Last Admin: 06/30/20 01:32 Dose: 100 mls/hr Documented by: Sodium Chloride (Normal Saline) 1,000 mls @ 999 mls/hr IV .BOLUS ONE Stop: 06/30/20 04:22 Last Admin: 06/30/20 03:34 Dose: 999 mls/hr Documented by: Sodium Chloride (Normal Saline) 1,000 mls @ 125 mls/hr IV ASDIRECTED [facility] Last Admin: 06/30/20 04:37 Dose: 125 mls/hr Documented by: Lactated Ringer's (Ringers, Lactated) 500 mls @ 999 mls/hr IV .BOLUS [facility] Ceftriaxone Sodium 1 gm/ (Sodium Chloride) 50 mls @ 100 mls/hr IV BEDTIME [facility] Last Admin: 07/01/20 21:18 Dose: 100 mls/hr Documented by: Levofloxacin/Dextrose 750 mg/ (Premix) 150 mls @ 100 mls/hr IV Q24H [facility] Last Admin: 07/01/20 10:57 Dose: 100 mls/hr Documented by: Sodium Chloride (Normal Saline) 1,000 mls @ 75 mls/hr IV ASDIRECTED [facility] Last Admin: 07/01/20 00:50 Dose: 75 mls/hr Documented by: Potassium Chloride (Potassium Chloride Solution) 40 meq PO ONETIME ONE Stop: 07/02/20 09:31 Last Admin: 07/02/20 09:38 Dose: 40 meq Documented by: - Exam Quality Assessment: Supplemental Oxygen, DVT Prophylaxis General: Alert, Cooperative, Mild Distress Lungs: Clear to Auscultation, Normal Respiratory Effort, Decreased Breath Sounds Cardiovascular: Regular Rate, Regular Rhythm, No Murmurs GI/Abdominal Exam: Soft, Non-Tender, No Organomegaly, No Distention Extremities: Non-Tender, No Pedal Edema Sepsis Event Note - Evaluation Sepsis Screening Result: No Definite Risk - Focused Exam Vital Signs: Vital Signs Temp Pulse Resp BP Pulse Ox Pulse Ox 07/02/20 10:00 72 18 120/64 94 L 07/02/20 08:09 97.3 F 85 24 H 135/60 90 L 07/02/20 05:00 71 17 130/60 91 L 07/02/20 03:00 74 20 121/60 90 L 07/02/20 01:46 93 L 07/02/20 01:33 94 L 07/02/20 01:00 73 14 110/54 L 94 L 07/01/20 23:34 40 H 85 L - Problem List Review Problem List Initiated/Reviewed/Updated: Yes - My Orders Last 24 Hours: My Active Orders 07/01/20 12:39 Convert IV to Saline Lock [OM.PC] Routine 07/02/20 11:05 Consult to Physical Therapy [PT Evaluation and Treatment] [CONS] Routine [employer]ST[employer]ER Evaluation and Treatment [CONS] Routine 07/02/20 11:15 levoFLOXacin [Levaquin] 750 mg PO Q24H 07/03/20 05:00 BASIC METABOLIC PANEL,BMP [CHEM] Timed - Plan Plan:: ASSESSMENT AND PLAN - Right lung pneumonia-complicated by sepsis and acute respiratory failure with hypoxia. Stable and improved from admission. Requiring less supplemental oxygen and has been hemodynamically stable. Over the last 24 hours has shown evidence of aspiration with eating. -Speech therapy evaluation tomorrow -Antibiotic coverage oral levofloxacin -Saline lock IV -Sputum and blood cultures pending -Supplement oxygen Bilateral pleural effusions-slightly larger on the left than on the right. No history of congestive heart failure. -Consider echocardiogram tomorrow Recurrent urinary tract infections-several rounds of antibiotics over the past month. Urine last night suggestive of infection and he did have E. coli growing in the culture today. This should have been sensitive to the cephalexin. -Antibiotics as above Maintenance issues - - DVT prophylaxis -enoxaparin - GI prophylaxis -PPI - Nutrition -mechanical soft - Thorpe catheter -not currently indicated but could be considered if status b ecomes more critical CODE STATUS -DNR/DNI Admission justification -this patient will be admitted for inpatient services and is medically appropriate meeting medical necessity for inpatient admission as outlined in my documentation. I reasonably expect the patient will require inpatient services that span a period time over 2 midnights. I reasonably expect this patient to be discharged or transferred within 96 hours after admission to the [facility]. Disposition -I would anticipate discharge to a [facility] facility if he survives the hospital stay Primary care physician -Dr Maryjo Genao
[2020-07-02] MEDS: Levofloxacin 250 MG Tab PO SCH (11:25)
[2020-07-02] MEDS: Levofloxacin/Dextrose 5%-Water 750 MG in Premix Bag 1 BAG IV SCH (11:34)
[2020-07-02] MEDS ORDERED: Levofloxacin/Dextrose 5%-Water 750 MG in Premix Bag 1 BAG IV SCH (18:00)
[2020-07-02] MEDS: Melatonin 3 MG Tab PO SCH (20:53)
[2020-07-02] MEDS: buPROPion 150 MG Tab.ER PO SCH (20:53)
[2020-07-02] MEDS: traZODone 50 MG Tab PO SCH (20:54)
[2020-07-03] MEDS: Albuterol/Ipratropium 3.0-0.5 MG/3 ML Neb Soln NEB SCH ×4 (06:59→21:53)
[2020-07-03] MEDS: Pantoprazole 40 MG Tab.CR PO SCH (08:18)
[2020-07-03] MEDS: Memantine 10 MG Tab PO SCH ×2 (08:28→21:50)
[2020-07-03] MEDS: Lactobacillus Rhamnosus GG (Probiotic) Cap PO SCH ×2 (08:29→21:49)
[2020-07-03] MEDS: Enoxaparin 40 MG/0.4 ML Syringe SUBCUT SCH (08:30)
--- NOTE | 2020-07-03 10:11 | CR ---
CHEST: Portable 06/30/2020 at 12:29 AM CLINICAL HISTORY:Right lung pneumonia, bilateral effusions COMPARISON:2016 FINDINGS: There is a small to moderate left pleural effusion. There is a small right pleural effusion and some pleural thickening. There are bilateral pneumonic infiltrates with some consolidation in the right lung base. IMPRESSION: Bilateral pleural effusions left greater than right Bilateral pulmonary infiltrates right greater than left
[2020-07-03] MEDS ORDERED: Furosemide 40 MG/4 ML VIAL IVPUSH ONE (12:36)
--- NOTE | 2020-07-03 12:40 | PCM.PN ---
- General Info Date of Service: 07/03/20 Subjective Update: Mr. Davis unfortunately experienced more difficulty with aspiration this morning. He had been kept n.p.o. pending swallowing evaluation today. He aspirated when taking morning medications and did become hypoxic for several minutes. He now appears to have recovered but is more weak and lethargic than he had been yesterday. He has remained afebrile and has been hemodynamically stable. Functional Status: Reports: Tolerating Diet, Urinating - Review of Systems General: Reports: Weakness, Fatigue. Denies: Fever, Chills Pulmonary: Reports: Shortness of Breath, Cough. Denies: Pleuritic Chest Pain, Sputum, Hemoptysis, Wheezing Cardiovascular: Reports: Dyspnea on Exertion. Denies: Chest Pain, Palpitations, Orthopnea, PND, Edema, Lightheadedness Gastrointestinal: Reports: No Symptoms - Patient Data Vitals - Most Recent: Last Vital Signs Temp 96.5 F L 07/03/20 08:00 Pulse 65 07/03/20 10:47 Resp 14 07/03/20 08:00 BP 117/5 L 07/03/20 08:00 Pulse Ox 88 L 07/03/20 08:00 Weight - Most Recent: 156 lb 4.8 oz I&O - Last 24 Hours: Intake & Output 07/02/20 07/03/20 07/03/20 22:59 06:59 14:59 Intake Total 100 Output Total 175 225 75 Balance -75 -225 -75 Lab Results Last 24 Hours: Laboratory Results - last 24 hr 07/03/20 Range/Units 04:15 Sodium 138 L (140-148) mmol/L Potassium 3.8 (3.6-5.2) mmol/L Chloride 104 (100-108) mmol/L Carbon Dioxide 32 (21-32) mmol/L Anion Gap 5.8 (5.0-14.0) mmol/L BUN 7 (7-18) mg/dL Creatinine 0.6 L (0.8-1.3) mg/dL Est Cr Clr Drug Dosing 96.83 mL/min Estimated GFR (MDRD) > 60 (>60) Glucose 89 (74-106) mg/dL Calcium 7.8 L (8.5-10.1) mg/dL German Results Last 24 Hours: Microbiology 06/30/20 19:11 Gram Stain - Final Sputum - Expectorated Respiratory Culture - Final Yeast Isolated 06/30/20 01:27 Aerobic Blood Culture - Preliminary Blood - Venous NO GROWTH AFTER 3 DAYS Anaerobic Blood Culture - Preliminary NO GROWTH AFTER 3 DAYS Med Orders - Current: Current Medications Acetaminophen (Tylenol) 650 mg PO Q4H PRN PRN Reason: Pain (Mild 1-3)/fever Albuterol (Proventil Neb Soln) 2.5 mg NEB Q4H PRN PRN Reason: Shortness Of Breath/wheezing Albuterol/Ipratropium (Duoneb 3.0-0.5 Mg/3 Ml) 3 ml NEB QIDRT [facility] Last Admin: 07/03/20 10:47 Dose: 3 ml Documented by: Bupropion HCl (Wellbutrin Xl) 150 mg PO BEDTIME [facility] Last Admin: 07/02/20 20:53 Dose: 150 mg Documented by: Enoxaparin Sodium (Lovenox) 40 mg SUBCUT DAILY [facility] Last Admin: 07/03/20 08:30 Dose: 40 mg Documented by: Lactobacillus Rhamnosus (Culturelle) 1 cap PO BID [facility] Last Admin: 07/03/20 08:29 Dose: 1 cap Documented by: Levofloxacin (Levaquin) 750 mg PO Q24H [facility] Last Admin: 07/02/20 11:25 Dose: 750 mg Documented by: Lorazepam (Ativan) 0.5 mg IVPUSH Q4H PRN PRN Reason: Nausea/Vomiting Magnesium Hydroxide (Milk Of Magnesia) 30 ml PO Q12H PRN PRN Reason: Constipation Melatonin (Melatonin) 9 mg PO BEDTIME [facility] Last Admin: 07/02/20 20:53 Dose: 9 mg Documented by: Memantine (Namenda) 10 mg PO BID [facility] Last Admin: 07/03/20 08:28 Dose: 10 mg Documented by: Ondansetron HCl (Zofran) 4 mg IV Q6H PRN PRN Reason: Nausea/Vomiting Ondansetron HCl (Zofran Odt) 4 mg PO Q6H PRN PRN Reason: Nausea able to take PO Pantoprazole Sodium (Protonix) 40 mg PO ACBREAKFAST [facility] Last Admin: 07/03/20 08:18 Dose: 40 mg Documented by: Senna/Docusate Sodium (Senna Plus) 1 tab PO BID PRN PRN Reason: Constipation Last Admin: 07/03/20 08:18 Dose: 1 tab Documented by: Sodium Chloride (Saline Flush) 10 ml FLUSH ASDIRECTED PRN PRN Reason: Keep Vein Open Last Admin: 06/30/20 00:55 Dose: 10 ml Documented by: Tramadol HCl (Ultram) 50 mg PO Q4H PRN PRN Reason: Pain Last Admin: 07/03/20 08:28 Dose: 50 mg Documented by: Trazodone HCl (Trazodone) 100 mg PO BEDTIME [facility] Last Admin: 07/02/20 20:54 Dose: 100 mg Documented by: Discontinued Medications Albuterol/Ipratropium (Duoneb 3.0-0.5 Mg/3 Ml) 3 ml NEB QID [facility] Last Admin: 06/30/20 06:58 Dose: 3 ml Documented by: Lactated Ringer's (Ringers, Lactated) 1,000 mls @ 1,000 mls/hr IV BOLUS [facility] Last Admin: 06/30/20 00:56 Dose: 1,000 mls/hr Documented by: Levofloxacin/Dextrose 750 mg/ (Premix) 150 mls @ 100 mls/hr IV ONETIME ONE Stop: 06/30/20 02:55 Last Admin: 06/30/20 01:32 Dose: 100 mls/hr Documented by: Sodium Chloride (Normal Saline) 1,000 mls @ 999 mls/hr IV .BOLUS ONE Stop: 06/30/20 04:22 Last Admin: 06/30/20 03:34 Dose: 999 mls/hr Documented by: Sodium Chloride (Normal Saline) 1,000 mls @ 125 mls/hr IV ASDIRECTED [facility] Last Admin: 06/30/20 04:37 Dose: 125 mls/hr Documented by: Lactated Ringer's (Ringers, Lactated) 500 mls @ 999 mls/hr IV .BOLUS [facility] Ceftriaxone Sodium 1 gm/ (Sodium Chloride) 50 mls @ 100 mls/hr IV BEDTIME [facility] Last Admin: 07/01/20 21:18 Dose: 100 mls/hr Documented by: Levofloxacin/Dextrose 750 mg/ (Premix) 150 mls @ 100 mls/hr IV Q24H [facility] Last Admin: 07/02/20 11:34 Dose: Not Given Documented by: Sodium Chloride (Normal Saline) 1,000 mls @ 75 mls/hr IV ASDIRECTED [facility] Last Admin: 07/01/20 00:50 Dose: 75 mls/hr Documented by: Potassium Chloride (Potassium Chloride Solution) 40 meq PO ONETIME ONE Stop: 07/02/20 09:31 Last Admin: 07/02/20 09:38 Dose: 40 meq Documented by: - Exam Quality Assessment: Supplemental Oxygen, DVT Prophylaxis General: Alert, Cooperative, Mild Distress Lungs: Clear to Auscultation, Normal Respiratory Effort, Decreased Breath Sounds. No: Rales, Rhonchi, Wheezing Cardiovascular: Regular Rate, Regular Rhythm, No Murmurs GI/Abdominal Exam: Soft, Non-Tender, No Organomegaly, No Distention Extremities: Non-Tender, No Pedal Edema Sepsis Event Note - Evaluation Sepsis Screening Result: No Definite Risk - Focused Exam Vital Signs: Vital Signs Temp Pulse Resp BP Pulse Ox 07/03/20 10:47 65 07/03/20 08:00 96.5 F L 66 14 117/5 L 88 L 07/03/20 06:00 63 20 139/62 92 L 07/03/20 04:00 63 20 113/36 L 94 L 07/03/20 02:21 97 07/03/20 02:00 69 12 110/47 L 96 - Problem List Review Problem List Initiated/Reviewed/Updated: Yes - My Orders Last 24 Hours: My Active Orders 07/03/20 08:00 Echo Comp wo Cont [US] Urgent 07/03/20 08:41 RT Suction Nasopharyngeal [RESPCARE] Stat 07/03/20 10:17 Swallowing Function w Video [CR] Urgent 07/03/20 12:36 Furosemide [Lasix] 40 mg IVPUSH NOW ONE 07/04/20 05:00 BASIC METABOLIC PANEL,BMP [CHEM] Timed - Plan Plan:: ASSESSMENT AND PLAN - Right lung pneumonia-complicated by sepsis and acute respiratory failure with hypoxia. Over the last 24 hours has shown evidence of aspiration with eating and taking medications -Speech therapy evaluation -Antibiotic coverage oral levofloxacin -Saline lock IV -Sputum and blood cultures pending -Supplement oxygen Bilateral pleural effusions-slightly larger on the left than on the right. No history of congestive heart failure. -Formal echo report pending -Furosemide 40 mg IV today Recurrent urinary tract infections-several rounds of antibiotics over the past month. Urine last night suggestive of infection and he did have E. coli growing in the culture today. This should have been sensitive to the cephalexin. -Antibiotics as above Maintenance issues - - DVT prophylaxis -enoxaparin - GI prophylaxis -PPI - Nutrition -mechanical soft - Thorpe catheter -not currently indicated but could be considered if status becomes more critical CODE STATUS -DNR/DNI Admission justification -this patient will be admitted for inpatient services and is medically appropriate meeting medical necessity for inpatient admission as outlined in my documentation. I reasonably expect the patient will require inpatient services that span a period time over 2 midnights. I reasonably expect this patient to be discharged or transferred within 96 hours after admission to the [facility]. Disposition -I would anticipate discharge to a [facility] facility if he survives the hospital stay Primary care physician -Dr Maryjo Genao
[2020-07-03] MEDS ORDERED: Barium Sulfate 60% w/w Esophageal Crm 454 GM Tube PO PRN (15:18)
[2020-07-03] MEDS ORDERED: Barium Sulfate 98% Powder for Susp 340 GM Bottle PO PRN (15:18)
[2020-07-03] MEDS: Levofloxacin 250 MG Tab PO SCH (16:10)
[2020-07-03] MEDS: Sodium Chloride 0.9% 1,000 ML IV SCH (17:35)
[2020-07-03] MEDS: traZODone 50 MG Tab PO SCH (21:50)
[2020-07-03] MEDS: buPROPion 150 MG Tab.ER PO SCH (21:50)
[2020-07-03] MEDS: Melatonin 3 MG Tab PO SCH (21:50)
[2020-07-04] MEDS: Sodium Chloride 0.9% 1,000 ML IV SCH ×2 (06:46→20:31)
[2020-07-04] MEDS: Albuterol/Ipratropium 3.0-0.5 MG/3 ML Neb Soln NEB SCH ×4 (07:13→20:30)
[2020-07-04] MEDS: Pantoprazole 40 MG Tab.CR PO SCH (07:52)
--- NOTE | 2020-07-04 09:09 | CR ---
Swallowing Function w Video INDICATION: Choking on food Fluoro images obtained 1 TECHNIQUE: Video swallowing study performed in conjunction with the Speech Pathology Staff. Patient was given barium in varying consistencies. Swallowing was observed fluoroscopically. FINDINGS: Patient attempted to swallow thin liquids. There was difficulty initiating a swallow. Patient immediately penetrated the airway with thin liquids with eventual aspiration below the cords. Patient was then given thickened liquids with similar results. Study was terminated at that point IMPRESSION: Limited exam. Patient aspirated both thin and thick liquids See Speech Pathology Staff note for additional details.
--- NOTE | 2020-07-04 10:19 | PCM.PN ---
- General Info Date of Service: 07/04/20 Subjective Update: No acute events overnight. Patient did not do well with the swallow study yesterday. He had penetration with thin and thick liquids. He has a loose sounding cough. No complaints of chest pain or abdominal pain. No fevers. Still needing some supplemental oxygen. The patient and his daughter have talked about the feeding tube and they have decided to move forward with a feeding tube placement. They are hoping that nutrition can help him get stronger. Functional Status: Reports: Pain Controlled - Review of Systems General: Reports: Weakness. Denies: Fever - Patient Data Vitals - Most Recent: Last Vital Signs Temp 36.6 C 07/04/20 07:00 Pulse 98 07/04/20 09:00 Resp 26 H 07/04/20 09:00 BP 123/54 L 07/04/20 07:00 Pulse Ox 90 L 07/04/20 09:00 Weight - Most Recent: 70.896 kg I&O - Last 24 Hours: Intake & Output 07/03/20 07/04/20 07/04/20 22:59 06:59 14:59 Intake Total 1000 Output Total 1100 650 Balance -1100 350 Lab Results Last 24 Hours: Laboratory Results - last 24 hr 07/04/20 Range/Units 04:10 Sodium 137 L (140-148) mmol/L Potassium 3.5 L (3.6-5.2) mmol/L Chloride 102 (100-108) mmol/L Carbon Dioxide 34 H (21-32) mmol/L Anion Gap 4.5 L (5.0-14.0) mmol/L BUN 8 (7-18) mg/dL Creatinine 0.7 L (0.8-1.3) mg/dL Est Cr Clr Drug Dosing 81.59 mL/min Estimated GFR (MDRD) > 60 (>60) Glucose 97 (74-106) mg/dL Calcium 7.6 L (8.5-10.1) mg/dL German Results Last 24 Hours: Microbiology 06/30/20 01:27 Aerobic Blood Culture - Preliminary Blood - Venous NO GROWTH AFTER 4 DAYS Anaerobic Blood Culture - Preliminary NO GROWTH AFTER 4 DAYS 06/30/20 19:11 Gram Stain - Final Sputum - Expectorated Respiratory Culture - Final Yeast Isolated Med Orders - Current: Current Medications Acetaminophen (Tylenol) 650 mg PO Q4H PRN PRN Reason: Pain (Mild 1-3)/fever Albuterol (Proventil Neb Soln) 2.5 mg NEB Q4H PRN PRN Reason: Shortness Of Breath/wheezing Albuterol/Ipratropium (Duoneb 3.0-0.5 Mg/3 Ml) 3 ml NEB QIDRT [facility] Last Admin: 07/04/20 07:13 Dose: 3 ml Documented by: Barium Sulfate (E-Z-Paste) 25 gm PO . DIRECTED PRN PRN Reason: RADIOLOGY EXAM Stop: 07/04/20 15:19 Last Admin: 07/03/20 15:28 Dose: 25 gm Documented by: Barium Sulfate (E-Z-Hd) 50 gm PO . DIRECTED PRN PRN Reason: RADIOLOGY EXAM Stop: 07/04/20 15:19 Last Admin: 07/03/20 15:27 Dose: 50 gm Documented by: Bupropion HCl (Wellbutrin Xl) 150 mg PO BEDTIME [facility] Last Admin: 07/03/20 21:50 Dose: Not Given Documented by: Enoxaparin Sodium (Lovenox) 40 mg SUBCUT DAILY [facility] Last Admin: 07/03/20 08:30 Dose: 40 mg Documented by: Sodium Chloride (Normal Saline) 1,000 mls @ 75 mls/hr IV ASDIRECTED [facility] Last Admin: 07/04/20 06:46 Dose: 75 mls/hr Documented by: Lactobacillus Rhamnosus (Culturelle) 1 cap PO BID [facility] Last Admin: 07/03/20 21:49 Dose: Not Given Documented by: Levofloxacin (Levaquin) 750 mg PO Q24H [facility] Last Admin: 07/03/20 16:10 Dose: Not Given Documented by: Lorazepam (Ativan) 0.5 mg IVPUSH Q4H PRN PRN Reason: Nausea/Vomiting Last Admin: 07/04/20 00:50 Dose: 0.5 mg Documented by: Magnesium Hydroxide (Milk Of Magnesia) 30 ml PO Q12H PRN PRN Reason: Constipation Melatonin (Melatonin) 9 mg PO BEDTIME [facility] Last Admin: 07/03/20 21:50 Dose: Not Given Documented by: Memantine (Namenda) 10 mg PO BID [facility] Last Admin: 07/03/20 21:50 Dose: Not Given Documented by: Ondansetron HCl (Zofran) 4 mg IV Q6H PRN PRN Reason: Nausea/Vomiting Ondansetron HCl (Zofran Odt) 4 mg PO Q6H PRN PRN Reason: Nausea able to take PO Pantoprazole Sodium (Protonix) 40 mg PO ACBREAKFAST [facility] Last Admin: 07/04/20 07:52 Dose: Not Given Documented by: Senna/Docusate Sodium (Senna Plus) 1 tab PO BID PRN PRN Reason: Constipation Last Admin: 07/03/20 08:18 Dose: 1 tab Documented by: Sodium Chloride (Saline Flush) 10 ml FLUSH ASDIRECTED PRN PRN Reason: Keep Vein Open Last Admin: 06/30/20 00:55 Dose: 10 ml Documented by: Tramadol HCl (Ultram) 50 mg PO Q4H PRN PRN Reason: Pain Last Admin: 07/03/20 08:28 Dose: 50 mg Documented by: Trazodone HCl (Trazodone) 100 mg PO BEDTIME [facility] Last Admin: 07/03/20 21:50 Dose: Not Given Documented by: Discontinued Medications Albuterol/Ipratropium (Duoneb 3.0-0.5 Mg/3 Ml) 3 ml NEB QID [facility] Last Admin: 06/30/20 06:58 Dose: 3 ml Documented by: Furosemide (Lasix) 40 mg IVPUSH NOW ONE Stop: 07/03/20 12:37 Last Admin: 07/03/20 15:00 Dose: 40 mg Documented by: Lactated Ringer's (Ringers, Lactated) 1,000 mls @ 1,000 mls/hr IV BOLUS [facility] Last Admin: 06/30/20 00:56 Dose: 1,000 mls/hr Documented by: Levofloxacin/Dextrose 750 mg/ (Premix) 150 mls @ 100 mls/hr IV ONETIME ONE Stop: 06/30/20 02:55 Last Admin: 06/30/20 01:32 Dose: 100 mls/hr Documented by: Sodium Chloride (Normal Saline) 1,000 mls @ 999 mls/hr IV .BOLUS ONE Stop: 06/30/20 04:22 Last Admin: 06/30/20 03:34 Dose: 999 mls/hr Documented by: Sodium Chloride (Normal Saline) 1,000 mls @ 125 mls/hr IV ASDIRECTED [facility] Last Admin: 06/30/20 04:37 Dose: 125 mls/hr Documented by: Lactated Ringer's (Ringers, Lactated) 500 mls @ 999 mls/hr IV .BOLUS [facility] Ceftriaxone Sodium 1 gm/ (Sodium Chloride) 50 mls @ 100 mls/hr IV BEDTIME [facility] Last Admin: 07/01/20 21:18 Dose: 100 mls/hr Documented by: Levofloxacin/Dextrose 750 mg/ (Premix) 150 mls @ 100 mls/hr IV Q24H [facility] Last Admin: 07/02/20 11:34 Dose: Not Given Documented by: Sodium Chloride (Normal Saline) 1,000 mls @ 75 mls/hr IV ASDIRECTED [facility] Last Admin: 07/01/20 00:50 Dose: 75 mls/hr Documented by: Potassium Chloride (Potassium Chloride Solution) 40 meq PO ONETIME ONE Stop: 07/02/20 09:31 Last Admin: 07/02/20 09:38 Dose: 40 meq Documented by: - Exam Quality Assessment: Supplemental Oxygen General: Alert, Cooperative, No Acute Distress Lungs: Clear to Auscultation, Normal Respiratory Effort Cardiovascular: Regular Rate, Regular Rhythm GI/Abdominal Exam: Soft, No Distention Extremities: No Pedal Edema. No: Increased Warmth Skin: Warm, Dry Psy/Mental Status: Alert, Normal Affect Sepsis Event Note - Evaluation Sepsis Screening Result: No Definite Risk - Focused Exam Vital Signs: Vital Signs Temp Pulse Resp BP Pulse Ox Pulse Ox 07/04/20 09:00 98 26 H 90 L 07/04/20 08:00 91 L 07/04/20 07:00 36.6 C 86 26 H 123/54 L 92 L 07/04/20 05:00 72 16 133/66 97 07/04/20 03:00 83 13 122/56 L 96 07/04/20 01:00 76 13 132/58 L 98 07/03/20 23:00 80 14 132/58 L 98 - Problem List & Annotations (1) Pneumonia SNOMED Code(s): 358012503 Code(s): J18.9 - PNEUMONIA, UNSPECIFIED ORGANISM Status: Acute Current Visit: Yes Qualifiers: Pneumonia type: due to unspecified organism Laterality: bilateral Lung location: lower lobe of lung Qualified Code(s): J18.9 - Pneumonia, unspecified organism (2) Sepsis SNOMED Code(s): 33365094 Code(s): A41.9 - SEPSIS, UNSPECIFIED ORGANISM Status: Acute Current Visit: Yes Qualifiers: Sepsis acute organ dysfunction status: with acute organ dysfunction Severe sepsis acute organ dysfunction type: acute respiratory failure Acute respiratory failure type: with hypoxia Severe sepsis shock status: without septic shock (3) Acute respiratory failure with hypoxia SNOMED Code(s): 29438159, 851431891 Code(s): J96.01 - ACUTE RESPIRATORY FAILURE WITH HYPOXIA Status: Acute Current Visit: Yes (4) Pleural effusion SNOMED Code(s): 19843199 Code(s): J90 - PLEURAL EFFUSION, NOT ELSEWHERE CLASSIFIED Status: Acute Current Visit: Yes (5) UTI (urinary tract infection) SNOMED Code(s): 33770360 Code(s): N39.0 - URINARY TRACT INFECTION, SITE NOT SPECIFIED Status: Resolved Current Visit: No Qualifiers: Urinary tract infection type: acute cystitis Hematuria presence: without hematuria Qualified Code(s): N30.00 - Acute cystitis without hematuria (6) Weakness SNOMED Code(s): 47177067 Code(s): R53.1 - WEAKNESS Status: Acute Current Visit: No - Problem List Review Problem List Initiated/Reviewed/Updated: Yes - My Orders Last 24 Hours: My Active Orders 07/04/20 10:16 Transfer Patient (Change bed) [ADT] Routine 07/04/20 10:18 PT Evaluation and Treatment [CONS] Routine - Plan Plan:: ASSESSMENT AND PLAN - Right lung pneumonia-complicated by sepsis and acute respiratory failure with hypoxia. Patient has known aspiration as well which certainly could have been the culprit for the infection. -Continue levofloxacin -Saline lock IV -Supplement oxygen as needed, wean as able Dysphagia-witnessed coughing and choking when he was trying to eat. Did not do well with the swallow eval yesterday even with thickened liquids. Family would like to proceed with feeding tube placement. -Consultation with Dr. Giron, feeding tube planned tomorrow -Start tube feeding when able after it has been placed -Nutrition consult tomorrow for tube feeding recommendations Bilateral pleural effusions-slightly larger on the left than on the right. No history of congestive heart failure. -Formal echo report pending Recurrent urinary tract infections-several rounds of antibiotics over the past month. Urine last night suggestive of infection and he did have E. coli growing in the culture today. This should have been sensitive to the cephalexin. -Antibiotics as above Maintenance issues - - DVT prophylaxis -enoxaparin - GI prophylaxis -PPI - Nutrition -n.p.o. Disposition -I would anticipate discharge to a long-term facility for subacute rehab Severiano Kitchen MD
[2020-07-04] MEDS: Memantine 10 MG Tab PO SCH (10:59)
[2020-07-04] MEDS: Lactobacillus Rhamnosus GG (Probiotic) Cap PO SCH ×2 (10:59→20:28)
[2020-07-04] MEDS: Levofloxacin 250 MG Tab PO SCH (11:00)
[2020-07-04] MEDS: Enoxaparin 40 MG/0.4 ML Syringe SUBCUT SCH (11:04)
[2020-07-04] MEDS: Levofloxacin/Dextrose 5%-Water 750 MG in Premix Bag 1 BAG IV SCH (16:13)
[2020-07-05] MEDS: Albuterol/Ipratropium 3.0-0.5 MG/3 ML Neb Soln NEB SCH (06:41)
[2020-07-05] MEDS ORDERED: D5 1/2 NS w/ 20 mEq/L KCl 1,000 ML IV SCH (07:45)
[2020-07-05] MEDS: Pantoprazole 40 MG Tab.CR PO SCH (07:50)
--- NOTE | 2020-07-05 07:58 | PCM.CONS ---
H&P History of Present Illness - General Date of Service: 07/05/20 Admit Problem/Dx: Admission Diagnosis/Problem Admission Diagnosis/Problem Pneumonia Source of Information: Other (Hospital Notes ) History Limitations: Reports: Altered Mental Status - History of Present Illness Initial Comments - Free Text/Narative: Surgery Department was asked to Consult with Baljinder for placement of a gastrostomy feeding tube which was to be placed today. Baljinder was tested for [id number] yesterday in preoperative recommendations before a surgical procedure and he was found to have Covid19. Denies pain Pain Score (Numeric/FACES): 0 - Related Data Allergies/Adverse Reactions: Allergies Allergy/AdvReac Type Severity Reaction Status Date / Time No Known Allergies Allergy Verified 06/29/20 23:58 Home Medications: Home Meds traZODone 100 mg PO BEDTIME 04/15/16 [History] Acetaminophen [Tylenol] 650 mg PO Q4H PRN #0 tablet 04/25/16 [Rx] Pantoprazole [ProTONIX] 40 mg PO ACBREAKFAST #30 tab.cr 04/25/16 [Rx] traMADol [Ultram] 50 mg PO Q4H PRN #50 tablet 04/25/16 [Rx] Cholecalciferol (Vitamin D3) [Vitamin D] 5,000 unit PO DAILY 06/02/20 [History] Memantine [Namenda] 10 mg PO BID 06/02/20 [History] buPROPion [buPROPion XL] 150 mg PO BEDTIME 06/02/20 [History] Past Medical History HEENT History: Reports: Hard of Hearing Cardiovascular History: Reports: Hypertension Neurological History: Reports: Alzheimers Disease Psychiatric History: Reports: Dementia - Infectious Disease History Infectious Disease History: Reports: Chicken Pox, Measles - Past Surgical History HEENT Surgical History: Reports: Tonsillectomy Social & Family History - Family History Cardiac: Denies: CAD - Tobacco Use Tobacco Use Status *Q: Never Tobacco User - Caffeine Use Caffeine Use: Reports: Coffee - Recreational Drug Use Recreational Drug Use: No H&P Review of Systems - Review of Systems: Review Of Systems: Unable To Obtain Reason Not Obtained: Patient has dementia Exam - Exam Exam: See Below - Vital Signs Vital Signs: Last Vital Signs Temp 97.3 F 07/05/20 07:28 Pulse 81 07/05/20 07:28 Resp 18 07/05/20 07:28 BP 157/70 H 07/05/20 07:28 Pulse Ox 92 L 07/05/20 07:28 Weight: 156 lb 4.783 oz - Exam Quality Assessment: Supplemental Oxygen, DVT Prophylaxis General: Other (Dementia ) HEENT: PERRLA Neck: Supple Lungs: Decreased Breath Sounds, Crackles Cardiovascular: Regular Rate, Regular Rhythm GI/Abdominal Exam: Soft, Non-Tender (Male) Exam: Deferred Rectal (Males) Exam: Deferred Back Exam: Normal Inspection, Full Range of Motion Extremities: Normal Inspection, Normal Range of Motion, No Pedal Edema Skin: Warm, Dry, Intact Neurological: Cranial Nerves Intact Neuro Extensive - Mental Status: Other (pleasant - good eye contact - dementia) Neuro Extensive - Motor, Sensory, Reflexes: CN II-XII Intact - Patient Data Lab Results Last 24 hrs: Laboratory Results - last 24 hr 07/05/20 Range/Units 00:01 SARS-CoV-2 RNA (ISELA) Positive H (NEGATIVE) Result Diagrams: 07/02/20 04:00 07/04/20 04:10 German Results Last 24 hrs: Microbiology 06/30/20 01:27 Aerobic Blood Culture - Final Blood - Venous NO GROWTH AFTER 5 DAYS Anaerobic Blood Culture - Final NO GROWTH AFTER 5 DAYS Sepsis Event Note - Evaluation Sepsis Screening Result: No Definite Risk - Focused Exam Vital Signs: Vital Signs Temp Pulse Resp BP Pulse Ox 07/05/20 07:28 97.3 F 81 18 157/70 H 92 L 07/05/20 03:24 94 L 07/05/20 03:03 98.8 F 76 18 141/67 H 95 07/04/20 22:00 97.6 F 74 18 147/64 H 91 L Consult PN Assessment/Plan Procedures: Procedures AIRWAY INHALATION TREATMENT (04/16/16) ASSAY OF LACTIC ACID (04/16/16) ASSAY OF LIPASE (04/16/16) ASSAY OF MAGNESIUM (04/16/16) ASSAY OF NATRIURETIC PEPTIDE (04/16/16) ASSAY OF PHOSPHORUS (04/16/16) ASSAY OF TROPONIN QUANT (06/28/20) CARDIAC REHAB/MONITOR (01/02/16) CARDIOVASCULAR STRESS TEST (01/25/15) CHEST WALL MANIPULATION (04/16/16) CHEST WALL MANIPULATION (04/16/16) CHEST X-RAY 2VW FRONTAL&LATL (02/15/16) COMPLETE CBC AUTOMATED (06/28/20) COMPLETE CBC W/AUTO DIFF WBC (06/02/20) COMPREHEN METABOLIC PANEL (04/16/16) CREATINE MB FRACTION (04/16/16) CT ABD & PELVIS W/O CONTRAST (04/16/16) CT HEAD/BRAIN W/O DYE (01/24/16) CT THORAX DX C- (02/19/16) CULTR BACTERIA EXCEPT BLOOD (04/16/16) CULTURE AEROBIC IDENTIFY (04/16/16) CULTURE OTHR SPECIMN AEROBIC (04/16/16) ELECTROCARDIOGRAM REPORT (04/16/16) ELECTROCARDIOGRAM TRACING (04/16/16) EMERGENCY DEPT VISIT (06/28/20) EMERGENCY DEPT VISIT (01/16/15) GLUCOSE BLOOD TEST (04/16/16) HT MUSCLE IMAGE SPECT MULT (01/25/15) HYDRATE IV INFUSION ADD-ON (04/16/16) IMMUNOHISTO ANTB 1ST STAIN (04/16/16) MEASURE BLOOD OXYGEN LEVEL (04/16/16) METABOLIC PANEL TOTAL CA (06/28/20) MICROBE SUSCEPTIBLE GERMAN (06/28/20) MRI JNT OF LWR EXTRE W/O DYE (12/09/14) ROUTINE VENIPUNCTURE (06/28/20) SMEAR GRAM STAIN (04/16/16) THER/PROPH/DIAG INJ IV PUSH (04/16/16) TISSUE EXAM BY PATHOLOGIST (04/16/16) TX/PRO/DX INJ NEW DRUG ADDON (04/16/16) TX/PRO/DX INJ SAME DRUG [employer] (04/16/16) URINALYSIS AUTO W/SCOPE (06/28/20) URINE BACTERIA CULTURE (06/28/20) URINE CULTURE/COLONY COUNT (06/28/20) US URINE CAPACITY MEASURE (01/24/16) X-RAY EXAM OF ABDOMEN (04/16/16) X-RAY XM UPR GI TRC 1CNTRST (04/16/16) Problem List Initiated/Reviewed/Updated: Yes My Orders Last 24 Hours: Surgical Procedure on hold until his pneumonia and Covid19 symptoms are stable. Clearance per Hospitalist - Nico Kitchen MD Thank you for this Surgical consultation. Zora Dawn
[2020-07-05] MEDS: Lactobacillus Rhamnosus GG (Probiotic) Cap PO SCH ×2 (08:00→20:33)
[2020-07-05] MEDS ORDERED: REMDESIVIR 200 MG in Sodium Chloride 0.9% 250 ML IV ONE (08:00)
[2020-07-05] MEDS ORDERED: Dexamethasone 4 MG/ML SDV IVPUSH SCH (09:00)
[2020-07-05] MEDS: Enoxaparin 40 MG/0.4 ML Syringe SUBCUT SCH (09:00)
[2020-07-05] MEDS ORDERED: Albuterol 8 GM Inhaler INH PRN (09:32)
[2020-07-05] MEDS: Pantoprazole 40 MG Vial IVPUSH SCH ×2 (13:16→17:00)
--- NOTE | 2020-07-05 13:48 | PCM.PN ---
- General Info Date of Service: 07/05/20 Subjective Update: There were no acute events overnight. The patient did have a second Covid test as part of routine preoperative screening and unfortunately this was positive. He was transferred to the Covid unit. He had increasing hypoxia this morning so we did start him on dexamethasone and remdesivir. He is currently requiring 8 L of supplemental oxygen. He says that he feels well. He does not feel short of breath. He does not report any chest pain. We were planning to place a feeding tube today but this is on hold until his respiratory status improves. Functional Status: Reports: Pain Controlled - Review of Systems General: Reports: Weakness. Denies: Fever - Patient Data Vitals - Most Recent: Last Vital Signs Temp 36.2 C 07/05/20 11:26 Pulse 97 07/05/20 11:26 Resp 18 07/05/20 11:26 BP 120/70 07/05/20 11:26 Pulse Ox 92 L 07/05/20 12:26 Weight - Most Recent: 70.896 kg I&O - Last 24 Hours: Intake & Output 07/04/20 07/05/20 07/05/20 22:59 06:59 14:59 Intake Total 1689 Balance 1689 Lab Results Last 24 Hours: Laboratory Results - last 24 hr 07/05/20 Range/Units 00:01 SARS-CoV-2 RNA (ISELA) Positive H (NEGATIVE) [place] Results Last 24 Hours: Microbiology 06/30/20 01:27 Aerobic Blood Culture - Final Blood - Venous NO GROWTH AFTER 5 DAYS Anaerobic Blood Culture - Final NO GROWTH AFTER 5 DAYS Med Orders - Current: Current Medications Acetaminophen (Tylenol) 650 mg PO Q4H PRN PRN Reason: Pain (Mild 1-3)/fever Albuterol (Ventolin Hfa) 0 gm INH Q4H PRN PRN Reason: shortness of breath/wheezing Bupropion HCl (Wellbutrin Xl) 150 mg PO BEDTIME [facility] Last Admin: 07/03/20 21:50 Dose: Not Given Documented by: Dexamethasone (Decadron) 6 mg IVPUSH Q24H [facility] Last Admin: 07/05/20 09:05 Dose: 6 mg Documented by: Enoxaparin Sodium (Lovenox) 40 mg SUBCUT DAILY [facility] Last Admin: 07/05/20 09:00 Dose: 40 mg Documented by: Levofloxacin/Dextrose 750 mg/ (Premix) 150 mls @ 100 mls/hr IV Q24H [facility] Last Admin: 07/04/20 16:13 Dose: 100 mls/hr Documented by: Remdesivir 100 mg/ Sodium (Chloride) 100 mls @ 100 mls/hr IV Q24H [facility] Stop: 07/09/20 09:59 Potassium Chloride/Dextrose/Sod Cl (D5 1/2 Ns W/ 20 Meq/L Kcl) 1,000 mls @ 50 mls/hr IV ASDIRECTED [facility] Last Admin: 07/05/20 08:56 Dose: 50 mls/hr Documented by: Lactobacillus Rhamnosus (Culturelle) 1 cap PO BID [facility] Last Admin: 07/05/20 08:00 Dose: Not Given Documented by: Lorazepam (Ativan) 0.5 mg IVPUSH Q4H PRN PRN Reason: Nausea/Vomiting Last Admin: 07/04/20 00:50 Dose: 0.5 mg Documented by: Magnesium Hydroxide (Milk Of Magnesia) 30 ml PO Q12H PRN PRN Reason: Constipation Memantine (Namenda) 10 mg PO BID [facility] Last Admin: 07/04/20 10:59 Dose: Not Given Documented by: Ondansetron HCl (Zofran) 4 mg IV Q6H PRN PRN Reason: Nausea/Vomiting Ondansetron HCl (Zofran Odt) 4 mg PO Q6H PRN PRN Reason: Nausea able to take PO Pantoprazole Sodium (Protonix Iv) 40 mg IVPUSH Q24H [facility] Last Admin: 07/05/20 13:16 Dose: Not Given Documented by: Senna/Docusate Sodium (Senna Plus) 1 tab PO BID PRN PRN Reason: Constipation Last Admin: 07/03/20 08:18 Dose: 1 tab Documented by: Sodium Chloride (Saline Flush) 10 ml FLUSH ASDIRECTED PRN PRN Reason: Keep Vein Open Last Admin: 06/30/20 00:55 Dose: 10 ml Documented by: Tramadol HCl (Ultram) 50 mg PO Q4H PRN PRN Reason: Pain Last Admin: 07/03/20 08:28 Dose: 50 mg Documented by: Trazodone HCl (Trazodone) 100 mg PO BEDTIME [facility] Last Admin: 07/03/20 21:50 Dose: Not Given Documented by: Discontinued Medications Albuterol (Proventil Neb Soln) 2.5 mg NEB Q4H PRN PRN Reason: Shortness Of Breath/wheezing Albuterol/Ipratropium (Duoneb 3.0-0.5 Mg/3 Ml) 3 ml NEB QID [facility] Last Admin: 06/30/20 06:58 Dose: 3 ml Documented by: Albuterol/Ipratropium (Duoneb 3.0-0.5 Mg/3 Ml) 3 ml NEB QIDRT [facility] Last Admin: 07/05/20 06:41 Dose: Not Given Documented by: Barium Sulfate (E-Z-Paste) 25 gm PO . DIRECTED PRN PRN Reason: RADIOLOGY EXAM Stop: 07/04/20 15:19 Last Admin: 07/03/20 15:28 Dose: 25 gm Documented by: Barium Sulfate (E-Z-Hd) 50 gm PO . DIRECTED PRN PRN Reason: RADIOLOGY EXAM Stop: 07/04/20 15:19 Last Admin: 07/03/20 15:27 Dose: 50 gm Documented by: Furosemide (Lasix) 40 mg IVPUSH NOW ONE Stop: 07/03/20 12:37 Last Admin: 07/03/20 15:00 Dose: 40 mg Documented by: Lactated Ringer's (Ringers, Lactated) 1,000 mls @ 1,000 mls/hr IV BOLUS [facility] Last Admin: 06/30/20 00:56 Dose: 1,000 mls/hr Documented by: Levofloxacin/Dextrose 750 mg/ (Premix) 150 mls @ 100 mls/hr IV ONETIME ONE Stop: 06/30/20 02:55 Last Admin: 06/30/20 01:32 Dose: 100 mls/hr Documented by: Sodium Chloride (Normal Saline) 1,000 mls @ 999 mls/hr IV .BOLUS ONE Stop: 06/30/20 04:22 Last Admin: 06/30/20 03:34 Dose: 999 mls/hr Documented by: Sodium Chloride (Normal Saline) 1,000 mls @ 125 mls/hr IV ASDIRECTED [facility] Last Admin: 06/30/20 04:37 Dose: 125 mls/hr Documented by: Lactated Ringer's (Ringers, Lactated) 500 mls @ 999 mls/hr IV .BOLUS [facility] Ceftriaxone Sodium 1 gm/ (Sodium Chloride) 50 mls @ 100 mls/hr IV BEDTIME [facility] Last Admin: 07/01/20 21:18 Dose: 100 mls/hr Documented by: Levofloxacin/Dextrose 750 mg/ (Premix) 150 mls @ 100 mls/hr IV Q24H [facility] Last Admin: 07/02/20 11:34 Dose: Not Given Documented by: Sodium Chloride (Normal Saline) 1,000 mls @ 75 mls/hr IV ASDIRECTED [facility] Last Admin: 07/01/20 00:50 Dose: 75 mls/hr Documented by: Sodium Chloride (Normal Saline) 1,000 mls @ 75 mls/hr IV ASDIRECTED [facility] Last Admin: 07/04/20 20:31 Dose: 75 mls/hr Documented by: Remdesivir 200 mg/ Sodium (Chloride) 250 mls @ 250 mls/hr IV ONETIME ONE Stop: 07/05/20 08:59 Last Admin: 07/05/20 09:04 Dose: 250 mls/hr Documented by: Levofloxacin (Levaquin) 750 mg PO Q24H [facility] Last Admin: 07/04/20 11:00 Dose: Not Given Documented by: Melatonin (Melatonin) 9 mg PO BEDTIME [facility] Last Admin: 07/03/20 21:50 Dose: Not Given Documented by: Pantoprazole Sodium (Protonix) 40 mg PO ACBREAKFAST [facility] Last Admin: 07/05/20 07:50 Dose: Not Given Documented by: Potassium Chloride (Potassium Chloride Solution) 40 meq PO ONETIME ONE Stop: 07/02/20 09:31 Last Admin: 07/02/20 09:38 Dose: 40 meq Documented by: - Exam Quality Assessment: Supplemental Oxygen General: Alert, Cooperative, No Acute Distress. No: Oriented HEENT: Pupils Equal Lungs: Normal Respiratory Effort, Crackles (both bases) Cardiovascular: Regular Rate, Regular Rhythm GI/Abdominal Exam: Soft, No Distention Extremities: No Pedal Edema. No: Increased Warmth Skin: Warm, Dry Psy/Mental Status: Alert, Normal Affect. No: Agitated Sepsis Event Note - Evaluation Sepsis Screening Result: No Definite Risk - Focused Exam Vital Signs: Vital Signs Temp Pulse Resp BP Pulse Ox 07/05/20 12:26 92 L 07/05/20 11:26 36.2 C 97 18 120/70 94 L 07/05/20 10:19 91 L 07/05/20 08:03 98 07/05/20 07:28 36.3 C 81 18 157/70 H 92 L 07/05/20 03:24 94 L 07/05/20 03:03 37.1 C 76 18 141/67 H 95 - Problem List & Annotations (1) Pneumonia SNOMED Code(s): 796088637 Code(s): J18.9 - PNEUMONIA, UNSPECIFIED ORGANISM Status: Acute Current Visit: Yes Qualifiers: Pneumonia type: due to unspecified organism Laterality: bilateral Lung location: lower lobe of lung Qualified Code(s): J18.9 - Pneumonia, unspecified organism (2) Sepsis SNOMED Code(s): 49613459 Code(s): A41.9 - SEPSIS, UNSPECIFIED ORGANISM Status: Acute Current Visit: Yes Qualifiers: Sepsis acute organ dysfunction status: with acute organ dysfunction Severe sepsis acute organ dysfunction type: acute respiratory failure Acute respiratory failure type: with hypoxia Severe sepsis shock status: without septic shock (3) Acute respiratory failure with hypoxia SNOMED Code(s): 87353839, 729934620 Code(s): J96.01 - ACUTE RESPIRATORY FAILURE WITH HYPOXIA Status: Acute Current Visit: Yes (4) Pleural effusion SNOMED Code(s): 13181061 Code(s): J90 - PLEURAL EFFUSION, NOT ELSEWHERE CLASSIFIED Status: Acute Current Visit: Yes (5) UTI (urinary tract infection) SNOMED Code(s): 08156833 Code(s): N39.0 - URINARY TRACT INFECTION, SITE NOT SPECIFIED Status: Resolved Current Visit: No Qualifiers: Urinary tract infection type: acute cystitis Hematuria presence: without hematuria Qualified Code(s): N30.00 - Acute cystitis without hematuria (6) Weakness SNOMED Code(s): 60614981 Code(s): R53.1 - WEAKNESS Status: Acute Current Visit: No - Problem List Review Problem List Initiated/Reviewed/Updated: Yes - My Orders Last 24 Hours: My Active Orders 07/04/20 16:30 Levofloxacin/Dextrose 5%-Water [Levaquin in D5W 750 MG/150 ML] 750 mg Premix Bag 1 bag IV Q24H 07/05/20 02:07 Isolation [COMM] Routine 07/05/20 07:29 Nurse Communication: Isolation [RC] ASDIRECTED Isolation [COMM] Routine 07/05/20 07:45 D5 1/2 NS w/ 20 mEq/L KCl 1,000 ml IV ASDIRECTED 07/05/20 09:00 dexAMETHasone [Decadron] 6 mg IVPUSH Q24H 07/05/20 09:32 RT Post Treatment Assessment [RC] Click to Edit Albuterol [Ventolin HFA] 0 gm INH Q4H PRN 07/05/20 12:00 Pantoprazole [ProTONIX IV] 40 mg IVPUSH Q24H 07/06/20 05:00 CBC W/O DIFF,HEMOGRAM [HEME] Timed (1) COMPREHENSIVE METABOLIC PN,CMP [CHEM] Timed D-DIMER QUANTITATIVE [COAG] Timed 07/06/20 09:00 Remdesivir 100 mg Sodium Chloride 0.9% [Normal Saline] 100 ml IV Q24H - Plan Plan:: ASSESSMENT AND PLAN - COVID-19 pneumonia with acute respiratory failure-preoperative routine testing revealed a positive test and since then he has had a decline in his respiratory status. We did start him on dexamethasone and remdesivir. -Continue dexamethasone day 1 -Continue remdesivir day 1 -Supplement oxygen -CMP, CRP and D-dimer in the morning -Isolation precautions Right lung pneumonia-complicated by sepsis and acute respiratory failure with hypoxia. Patient has known aspiration as well which certainly could have been the culprit for the infection. -Continue levofloxacin -Saline lock IV -Supplement oxygen as needed, wean as able Dysphagia-witnessed coughing and choking when he was trying to eat. Did not do well with the swallow eval yesterday even with thickened liquids. Family would like to proceed with feeding tube placement. -Consultation with Dr. Giron, feeding tube planned once respiratory status stabilizes -Start tube feeding when able after it has been placed -Nutrition consult for tube feeding recommendations Recurrent urinary tract infections-several rounds of antibiotics over the past month. Urine last night suggestive of infection and he did have E. coli growing in the culture today. This should have been sensitive to the cephalexin. -Antibiotics as above Maintenance issues - - DVT prophylaxis -enoxaparin - GI prophylaxis -PPI - Nutrition -n.p.o. Disposition -I would anticipate discharge to a retirement facility for subacute rehab Severiano Kitchen MD
[2020-07-05] MEDS: Levofloxacin/Dextrose 5%-Water 750 MG in Premix Bag 1 BAG IV SCH (16:59)
[2020-07-06] MEDS ORDERED: Furosemide 40 MG/4 ML VIAL IVPUSH STA (06:33)
[2020-07-06] MEDS ORDERED: Furosemide 40 MG/4 ML VIAL ONE (06:35)
[2020-07-06 06:47] VITALS: BP 160/82; PULSE 122
--- NOTE | 2020-07-06 08:31 | PCM.DCSUM1 ---
Discharge Summary - Hospital Course Brief History: 80-year-old male with history of mild dementia and recent recurrent urinary tract infections who presented after an episode of syncope while he was on the toilet. He was admitted to the intensive care unit for management of a bilateral pneumonia with sepsis and acute hypoxic respiratory failure. Diagnosis: Stroke: No - Discharge Data Discharge Date: 07/06/20 Discharge Disposition: Home, Self-Care 01 Preliminary Cause of *Q: Respiratory Failure Event(s) Leading to Patient's *Q: Combination of aspiration pneumonia and COVID-19 pneumonia with hypoxic respiratory failure Condition: - Referral to Home Health Primary Care Physician: PCP None - Discharge Diagnosis/Problem(s) (1) Pneumonia SNOMED Code(s): 847237276 ICD Code: J18.9 - PNEUMONIA, UNSPECIFIED ORGANISM Status: Acute Current Visit: Yes Qualifiers: Pneumonia type: aspiration pneumonia Laterality: bilateral Lung location: lower lobe of lung (2) Sepsis SNOMED Code(s): 82819145 ICD Code: A41.9 - SEPSIS, UNSPECIFIED ORGANISM Status: Acute Current Visit: Yes Qualifiers: Sepsis acute organ dysfunction status: with acute organ dysfunction Severe sepsis acute organ dysfunction type: acute respiratory failure Acute respiratory failure type: with hypoxia Severe sepsis shock status: without septic shock (3) Acute respiratory failure with hypoxia SNOMED Code(s): 43360031, 251488543 ICD Code: J96.01 - ACUTE RESPIRATORY FAILURE WITH HYPOXIA Status: Acute Current Visit: Yes (4) Pleural effusion SNOMED Code(s): 01985142 ICD Code: J90 - PLEURAL EFFUSION, NOT ELSEWHERE CLASSIFIED Status: Acute Current Visit: Yes (5) UTI (urinary tract infection) SNOMED Code(s): 05694334 ICD Code: N39.0 - URINARY TRACT INFECTION, SITE NOT SPECIFIED Status: Resolved Current Visit: No Qualifiers: Urinary tract infection type: acute cystitis Hematuria presence: without hematuria Qualified Code(s): N30.00 - Acute cystitis without hematuria (6) Weakness SNOMED Code(s): 65007114 ICD Code: R53.1 - WEAKNESS Status: Acute Current Visit: No (7) COVID-19 SNOMED Code(s): 691627589 ICD Code: U07.1 - COVID-19 Status: Acute Current Visit: Yes - Patient Summary/Data Consults: Consultations 07/02/20 11:05 SIZE MIXER Evaluation and Treatment [CONS] Routine Please Evaluate and Treat SIZE MIXER Reason for Consult: Swallow This query below is only for informational purposes and is not editable. Admission Diagnosis/Problem: Pneumonia 07/04/20 10:18 PT Evaluation and Treatment [CONS] Routine Please Evaluate and Treat. PT Reason for Consult: Strengthening This query below is only for informational purposes and is not editable. Admission Diagnosis/Problem: Pneumonia 07/06/20 06:33 Respiratory Care Assess and Treatment [CONS] Routine Comment: Physician Instructions: Hospital Course: Baljinder presents into the emergency room after an episode of syncope on the toilet. Work-up in the emergency room initially revealed hypoxia and later a chest x-ray and CT scan of the chest revealed a bibasilar pneumonia with slightly greater infiltrates on the right than the left. There was evidence for sepsis with the hypoxic respiratory failure and hypotension. He was started on broad-spectrum antibiotics since he had recent antibiotics as well as IV fluids and he was admitted to the intensive care unit. Urinary tract infection was also suspected based on urinalysis. Initially after admission he did show some improvement. Over the first couple of days of the hospital stay he had decreasing supplemental oxygen requirements. His sepsis resolved fairly quickly. His appetite was improving. On the morning of July 03 he had a significant aspiration episode and had increasing hypoxia. He was made NPO. Speech pathology was consulted and evaluation revealed significant aspiration with both thin and thick liquids. Discussion was held with the family about p lacing a feeding tube for nutrition versus a transition to comfort cares with his dementia and aspiration. Family decided that they did want a feeding tube placed the next day. The surgical team was consulted and the plan was for a feeding tube to be placed on the following day, July 05. As part of routine preoperative testing the patient had a second Covid test with his initial test being negative. Unfortunately his second test did come back positive for COVID- 19. The plan to [address] the feeding tube was put on hold until his respiratory status was stable. Starting on the morning of the after the patient had been placed in isolation he had a decline in his respiratory status with increasing supplemental oxygen requirements. He was started on dexamethasone and remdesivir for the Covid pneumonia protocol. Unfortunately his respiratory status declined further. Early in the morning on July 06 he had a significant increase in his supplemental oxygen requirement and despite a combination of a nonrebreather and high flow nasal cannula had significant hypoxia. The plan was to transition him to noninvasive ventilation but before this could be set up the patient deteriorated further. He at 722 on July 06. No attempts at resuscitation were made due to his previously discussed wishes. I believe his cause of was a combination of aspiration pneumonia with contribution from the COVID-19 given the rapid decline. - Discharge Plan Home Medications: Home Meds traZODone 100 mg PO BEDTIME 04/15/16 [History] Acetaminophen [Tylenol] 650 mg PO Q4H PRN #0 tablet 04/25/16 [Rx] Pantoprazole [ProTONIX] 40 mg PO ACBREAKFAST #30 tab.cr 04/25/16 [Rx] traMADol [Ultram] 50 mg PO Q4H PRN #50 tablet 04/25/16 [Rx] Cholecalciferol (Vitamin D3) [Vitamin D] 5,000 unit PO DAILY 06/02/20 [History] Memantine [Namenda] 10 mg PO BID 06/02/20 [History] buPROPion [buPROPion XL] 150 mg PO BEDTIME 06/02/20 [History] Referrals: PCP,None [Primary Care Provider] - - Discharge Summary/Plan Comment DC Time >30 min.: Yes (45) - Patient Data Vitals - Most Recent: Last Vital Signs Temp 36.3 C 07/06/20 06:45 Pulse 122 H 07/06/20 06:45 Resp 18 07/06/20 06:45 BP 160/82 H 07/06/20 06:45 Pulse Ox 67 L 07/06/20 06:45 Weight - Most Recent: 70.896 kg Lab Results - Last 24 hrs: Laboratory Results - last 24 hr 07/06/20 07/06/20 07/06/20 Range/Units 04:54 04:54 04:54 WBC 6.9 (4.5-11.0) K/uL RBC 4.24 L (4.30-5.90) M/uL Hgb 12.2 (12.0-15.0) g/dL Hct 39.0 L (40.0-54.0) % MCV 92 (80-98) fL MCH 29 (27-31) pg MCHC 31 L (32-36) % Plt Count 173 (150-400) K/uL D-Dimer, Quantitative 703.01 H (0.0-500.0) ng/mL Sodium 138 L (140-148) mmol/L Potassium 3.5 L (3.6-5.2) mmol/L Chloride 101 (100-108) mmol/L Carbon Dioxide 32 (21-32) mmol/L Anion Gap 8.5 (5.0-14.0) mmol/L BUN 17 D (7-18) mg/dL Creatinine 0.6 L (0.8-1.3) mg/dL Est Cr Clr Drug Dosing 95.18 mL/min Estimated GFR (MDRD) > 60 (>60) Glucose 111 H (74-106) mg/dL Calcium 8.1 L (8.5-10.1) mg/dL Total Bilirubin 0.3 (0.2-1.0) mg/dL AST 22 (15-37) U/L ALT 30 (12-78) U/L Alkaline Phosphatase 82 (46-116) U/L Total Protein 5.5 L (6.4-8.2) g/dL Albumin 1.5 L (3.4-5.0) g/dL Globulin 4.0 H (2.3-3.5) g/dL Albumin/Globulin Ratio 0.4 L (1.2-2.2) Med Orders - Current: Current Medications Acetaminophen (Tylenol) 650 mg PO Q4H PRN PRN Reason: Pain (Mild 1-3)/fever Albuterol (Ventolin Hfa) 0 gm INH Q4H PRN PRN Reason: shortness of breath/wheezing Bupropion HCl (Wellbutrin Xl) 150 mg PO BEDTIME [facility] Last Admin: 07/03/20 21:50 Dose: Not Given Documented by: Dexamethasone (Decadron) 6 mg IVPUSH Q24H [facility] Last Admin: 07/05/20 09:05 Dose: 6 mg Documented by: Enoxaparin Sodium (Lovenox) 40 mg SUBCUT DAILY [facility] Last Admin: 07/05/20 09:00 Dose: 40 mg Documented by: Levofloxacin/Dextrose 750 mg/ (Premix) 150 mls @ 100 mls/hr IV Q24H [facility] Last Admin: 07/05/20 16:59 Dose: 100 mls/hr Documented by: Remdesivir 100 mg/ Sodium (Chloride) 100 mls @ 100 mls/hr IV Q24H [facility] Stop: 07/09/20 09:59 Potassium Chloride/Dextrose/Sod Cl (D5 1/2 Ns W/ 20 Meq/L Kcl) 1,000 mls @ 50 mls/hr IV ASDIRECTED [facility] Last Admin: 07/05/20 08:56 Dose: 50 mls/hr Documented by: Lactobacillus Rhamnosus (Culturelle) 1 cap PO BID [facility] Last Admin: 07/05/20 20:33 Dose: Not Given Documented by: Lorazepam (Ativan) 0.5 mg IVPUSH Q4H PRN PRN Reason: Nausea/Vomiting Last Admin: 07/04/20 00:50 Dose: 0.5 mg Documented by: Magnesium Hydroxide (Milk Of Magnesia) 30 ml PO Q12H PRN PRN Reason: Constipation Memantine (Namenda) 10 mg PO BID [facility] Last Admin: 07/04/20 10:59 Dose: Not Given Documented by: Ondansetron HCl (Zofran) 4 mg IV Q6H PRN PRN Reason: Nausea/Vomiting Ondansetron HCl (Zofran Odt) 4 mg PO Q6H PRN PRN Reason: Nausea able to take PO Pantoprazole Sodium (Protonix Iv) 40 mg IVPUSH Q24H [facility] Last Admin: 07/05/20 17:00 Dose: 40 mg Documented by: Senna/Docusate Sodium (Senna Plus) 1 tab PO BID PRN PRN Reason: Constipation Last Admin: 07/03/20 08:18 Dose: 1 tab Documented by: Sodium Chloride (Saline Flush) 10 ml FLUSH ASDIRECTED PRN PRN Reason: Keep Vein Open Last Admin: 06/30/20 00:55 Dose: 10 ml Documented by: Tramadol HCl (Ultram) 50 mg PO Q4H PRN PRN Reason: Pain Last Admin: 07/03/20 08:28 Dose: 50 mg Documented by: Trazodone HCl (Trazodone) 100 mg PO BEDTIME [facility] Last Admin: 07/03/20 21:50 Dose: Not Given Documented by: Discontinued Medications Albuterol (Proventil Neb Soln) 2.5 mg NEB Q4H PRN PRN Reason: Shortness Of Breath/wheezing Albuterol/Ipratropium (Duoneb 3.0-0.5 Mg/3 Ml) 3 ml NEB QID [facility] Last Admin: 06/30/20 06:58 Dose: 3 ml Documented by: Albuterol/Ipratropium (Duoneb 3.0-0.5 Mg/3 Ml) 3 ml NEB QIDRT [facility] Last Admin: 07/05/20 06:41 Dose: Not Given Documented by: Barium Sulfate (E-Z-Paste) 25 gm PO . DIRECTED PRN PRN Reason: RADIOLOGY EXAM Stop: 07/04/20 15:19 Last Admin: 07/03/20 15:28 Dose: 25 gm Documented by: Barium Sulfate (E-Z-Hd) 50 gm PO . DIRECTED PRN PRN Reason: RADIOLOGY EXAM Stop: 07/04/20 15:19 Last Admin: 07/03/20 15:27 Dose: 50 gm Documented by: Furosemide (Lasix) 40 mg IVPUSH NOW ONE Stop: 07/03/20 12:37 Last Admin: 07/03/20 15:00 Dose: 40 mg Documented by: Furosemide (Lasix) 40 mg IVPUSH NOW STA Stop: 07/06/20 06:34 Last Admin: 07/06/20 06:44 Dose: 40 mg Documented by: Furosemide (Lasix) Confirm Administered Dose 40 mg .ROUTE .STK-MED ONE Stop: 07/06/20 06:36 Last Admin: 07/06/20 06:50 Dose: Not Given Documented by: Lactated Ringer's (Ringers, Lactated) 1,000 mls @ 1,000 mls/hr IV BOLUS [facility] Last Admin: 06/30/20 00:56 Dose: 1,000 mls/hr Documented by: Levofloxacin/Dextrose 750 mg/ (Premix) 150 mls @ 100 mls/hr IV ONETIME ONE Stop: 06/30/20 02:55 Last Admin: 06/30/20 01:32 Dose: 100 mls/hr Documented by: Sodium Chloride (Normal Saline) 1,000 mls @ 999 mls/hr IV .BOLUS ONE Stop: 06/30/20 04:22 Last Admin: 06/30/20 03:34 Dose: 999 mls/hr Documented by: Sodium Chloride (Normal Saline) 1,000 mls @ 125 mls/hr IV ASDIRECTED [facility] Last Admin: 06/30/20 04:37 Dose: 125 mls/hr Documented by: Lactated Ringer's (Ringers, Lactated) 500 mls @ 999 mls/hr IV .BOLUS [facility] Ceftriaxone Sodium 1 gm/ (Sodium Chloride) 50 mls @ 100 mls/hr IV BEDTIME [facility] Last Admin: 07/01/20 21:18 Dose: 100 mls/hr Documented by: Levofloxacin/Dextrose 750 mg/ (Premix) 150 mls @ 100 mls/hr IV Q24H [facility] Last Admin: 07/02/20 11:34 Dose: Not Given Documented by: Sodium Chloride (Normal Saline) 1,000 mls @ 75 mls/hr IV ASDIRECTED [facility] Last Admin: 07/01/20 00:50 Dose: 75 mls/hr Documented by: Sodium Chloride (Normal Saline) 1,000 mls @ 75 mls/hr IV ASDIRECTED [facility] Last Admin: 07/04/20 20:31 Dose: 75 mls/hr Documented by: Remdesivir 200 mg/ Sodium (Chloride) 250 mls @ 250 mls/hr IV ONETIME ONE Stop: 07/05/20 08:59 Last Admin: 07/05/20 09:04 Dose: 250 mls/hr Documented by: Levofloxacin (Levaquin) 750 mg PO Q24H [facility] Last Admin: 07/04/20 11:00 Dose: Not Given Documented by: Melatonin (Melatonin) 9 mg PO BEDTIME [facility] Last Admin: 07/03/20 21:50 Dose: Not Given Documented by: Pantoprazole Sodium (Protonix) 40 mg PO ACBREAKFAST [facility] Last Admin: 07/05/20 07:50 Dose: Not Given Documented by: Potassium Chloride (Potassium Chloride Solution) 40 meq PO ONETIME ONE Stop: 07/02/20 09:31 Last Admin: 07/02/20 09:38 Dose: 40 meq Documented by:
[2020-07-06] MEDS ORDERED: REMDESIVIR 100 MG in Sodium Chloride 0.9% 100 ML IV SCH (09:00)
== END 2020-07-06 14:23 | disposition expired | DRG 871 ==
LOC: JP.ED 23:35 → JP.ICU 06-30 01:59 → JP.MS 07-04 17:26 → JP.2SS 07-05 02:00
PROVIDERS: ADMIT Internal Medicine; ATTEND Internal Medicine
PROC: 8E0ZXY6 Isolation (ICD-10-PCS; principal; 2020-07-05)
PROC: XW033E5 Introduction of Remdesivir Anti-infective into Peripheral Vein, Percutaneous Approach, New Technology Group 5 (ICD-10-PCS; 2020-07-05)
DX: A41.89 Other specified sepsis (principal); J96.01 Acute respiratory failure with hypoxia; U07.1 COVID-19; J69.0 Pneumonitis due to inhalation of food and vomit; J12.89 Other viral pneumonia; J18.9 Pneumonia, unspecified organism; N30.00 Acute cystitis without hematuria; J90 Pleural effusion, not elsewhere classified; Z66 Do not resuscitate; R65.20 Severe sepsis without septic shock; R53.1 Weakness; R09.02 Hypoxemia; H54.7 Unspecified visual loss; I10 Essential (primary) hypertension; B96.20 Unspecified Escherichia coli [E. coli] as the cause of diseases classified elsewhere; G30.9 Alzheimer's disease, unspecified; Z98.890 Other specified postprocedural states; Z82.49 Family history of ischemic heart disease and other diseases of the circulatory system; Z99.81 Dependence on supplemental oxygen; F02.80 Dementia in other diseases classified elsewhere, unspecified severity, without behavioral disturbance, psychotic disturbance, mood disturbance, and anxiety; Z79.899 Other long term (current) drug therapy; Z20.828 Contact with and (suspected) exposure to other viral communicable diseases
CPT/HCPCS: 36415; 71045 ×2; 71250; 80048; 83605; 85027; 86140; 87040; 96365; 99283; 99285; J1956; J7120; U0002; 31720; 51701; 51702; 51703; 74230; 74230-26; 80053; 83735; 85025; 85379; 87070; 87077; 87205; 92611-GN; 93306; 94640; 94667; 94762; 97110-GP; 97162-GP; 97530-GP; 99223-AI; 99232; 99233; 99239; A9270-GY; C9113; J0696; J1100; J1650; J1940; J2060; J3480; J7030; J7050; J7620-GY